=== PATIENT | female | born 1995 | race Caucasian/White ===

== ENCOUNTER 2021-05-21 18:53 | Emergency (ER) | payer OTHER, SELFPAY ==
--- NOTE | ~2021-05-21 | XR_ITS ---
EXAMINATION: XR chest 1V portable DATE: 05/21/2021 19:30 INDICATION: Cough. TECHNIQUE: A single frontal view of the chest was obtained. COMPARISON: None. FINDINGS: The chest demonstrates clear lungs without pneumonia, pleural effusion, or pneumothorax. Th e heart size is normal. IMPRESSION: 1. No acute cardiopulmonary disease. Reviewed, dictated and finalized at location E. [facility]
[2021-05-21 19:10] VITALS: BP 140/87; PULSE 92; RESP 18; TEMP 37; O2SAT 98
--- NOTE | 2021-05-21 20:00 | ED.GENADULT ---
HPI - General Adult General Chief complaint: Shortness of Breath/Dyspnea Stated complaint: shortness of breath Time Seen by Provider: 05/21/21 19:16 History of Present Illness HPI narrative: Patient is a 18-year-old female who presents to the ER with cough and shortness of breath. Ongoing over the last week. Has sinus congestion and is worse at night which causes her to wake up and having to cough. Cough is productive. She does have some shortness of breath with exertion. No fevers or chills or sweats. She has been vaccinated against Covid. No loss of taste or smell. Related Data Allergies Allergy/AdvReac Type Severity Reaction Status Date / Time No Known Allergies Allergy Verified 05/21/21 19:21 Review of Systems Review of Systems: All systems reviewed & are unremarkable except as noted in HPI and below Constitutional: Constitutional: Denies chills, Reports fatigue and Denies fever(s) ENT: Reports nasal congestion and Reports sore throat Cardiovascular: Cardiovascular: Denies chest pain, Denies rapid heart rate and Denies radiating jaw, neck or arm pain Respiratory: Respiratory: Reports chest congestion, Reports cough, Reports dyspnea and Denies wheezing Gastrointestinal: Gastrointestinal: Denies abdominal pain, Denies nausea and Denies vomiting PMFSH Past Medical History Medical History (Updated 05/21/21 @ 20:[address] MD) Healthy female adult Surgical History Surgical History (Updated 05/21/21 @ 20:[address] MD) No history of previous surgery Social History Social History (Updated 05/21/21 @ 20:[address] MD) Smoking status: Current every day smoker Exam Narrative: GENERAL: Well-appearing, well-nourished, and in no acute distress. HEAD: Normocephalic, atraumatic. CHEST: Scattered rhonchi worse on left than right that improves with coughing. HEART: Regular rate and rhythm. Normal peripheral pulses.. EXTREMITIES: Normal range of motion. No edema. SKIN: Warm, dry, no rash. NEURO: Alert and oriented x3. PSYCH: Normal mood and affect. Course Course Emergency Course: Patient informed of results. Discharge home with steroids and albuterol. Patient may be experiencing bronchitis. Covid pending. Discussed should Covid results be positive its recommend she discontinue her prednisone. Vital Signs Vital signs: Vital Signs Temperature 98.6 F 05/21/21 19:10 Pulse Rate 92 05/21/21 19:10 Respiratory Rate 18 05/21/21 19:10 Blood Pressure 140/87 05/21/21 19:10 Pulse Oximetry 98 05/21/21 19:10 Temperature 98.6 F 05/21/21 19:10 Pulse Rate 92 05/21/21 19:10 Respiratory Rate 18 05/21/21 19:10 Blood Pressure 140/87 05/21/21 19:10 Pulse Oximetry 98 05/21/21 19:10 Medical Decision Making Vital Signs Vital Signs: Vital Signs Temperature 98.6 F 05/21/21 19:10 Pulse Rate 92 05/21/21 19:10 Respiratory Rate 18 05/21/21 19:10 Blood Pressure 140/87 05/21/21 19:10 Pulse Oximetry 98 05/21/21 19:10 Temperature 98.6 F 05/21/21 19:10 Pulse Rate 92 05/21/21 19:10 Respiratory Rate 18 05/21/21 19:10 Blood Pressure 140/87 05/21/21 19:10 Pulse Oximetry 98 05/21/21 19:10 Imaging Data Radiologist's impression: ITS Impressions Chest X-Ray 05/21/21 19:30 IMPRESSION: 1. No acute cardiopulmonary disease. Discharge Plan Discharge Clinical Impression: Bronchitis, Person under investigation for COVID-19 Patient Disposition: Home, Self-Care Condition: Stable Instructions: Acute Bronchitis (ED), COVID-19 (Coronavirus Disease 2019) (ED) Additional Instructions: Return the ER if you have worsening shortness of breath, you cannot keep down food or water, you develop chest pain, you have additional concerns. Prescriptions: New prednisone 50 mg tablet 50 mg PO DAILY Qty: 7 RF: 0 albuterol sulfate 90 mcg/actuation HFA aerosol inhaler 4 puff INHALATION QID MA
[2021-05-21 20:40] VITALS: BP 136/83; PULSE 81; RESP 20; O2SAT 100
== END 2021-05-21 20:41 | disposition home or self-care (01) ==
LOC: ANHED 20:14
PROVIDERS: Emergency Provider Emergency Medicine
DX: J40 Bronchitis, not specified as acute or chronic (principal); Z20.822 Contact with and (suspected) exposure to COVID-19
CPT/HCPCS: 71045; 99283

== ENCOUNTER 2024-06-03 13:39 | Emergency (ER) | payer OTHER, SELFPAY ==
--- NOTE | ~2024-06-03 | XR_ITS ---
CHEST RADIOGRAPH, PA AND LATERAL CLINICAL HISTORY: fever, cough . COMPARISON: 05/21/2021 TECHNIQUE: PA and lateral views of the chest. FINDINGS The cardiomediastinal silhouette is unremarkable. The lungs are clear. Visualized osseous structures and soft tissues are unremarkable. IMPRESSION: No focal infiltrate or effusion. Reviewed, dictated and finalized at location A. CIAN
--- OUTSIDE RECORDS SUMMARY | 2024-06-03 13:42 | XMS_ITS | Patient Health Summary ---
Author Organization [facility] Address [address] [place] [address] Care Team Providers Care Buttonhole Marker Name Role Phone Unavailable Primary Care Provider Unavailabl e Note from [facility],non-owned Affiliates and Associated Physician Practices is amultiple site organization consisting of ambulatory clinics and hospital sitesin [place], [place], [place] and [place]. This disclosure is being madepursuant to the Care Everywhere program and may not contain all information available regarding this patient. Last updated 17.[facility] Allergies No known active allergies Medications * Be aware that medications may not be up to date on this document. Alwaysverify current medications with the patient. * docusate sodium (Colace) 100 MG capsule Take 100 mg by mouth once daily * Vit-Fe Fumarate-FA ( vitamin) 28-0.8 MG tablet Take 1 tablet by mouth once daily * aspirin (Aspirin) 81 MG chew tablet Take 81 mg by mouth once daily * famotidine (Pepcid) 20 MG tablet(Started 01/20/2022) Take 1 (one) tablet by mouth every 12 hours Reasons: Heartburn 5 refills by 01/20/2023 Active Problems Problem Noted Date Diagnosed Date Class 3 obesity 01/19/2022 Preeclampsia, third trimester 01/19/2022 Social History Tobacco Use Types Packs/Day Years Used Date Smoking Tobacco: Never Smokeless Tobacco: Never Alcohol Use Standard Drinks/Week Comments Not Currently 0 (1 standard drink = 0.6 oz pur e alcohol) Sex and Gender Information Value Date Recorded Sex Assigned at Not on file Gender Identity Not on file Sexual Orientation Not on file Last Filed Vital Signs Vital Sign Reading Time Taken Comments Blood Pressure 128/76 02/12/2022 1:44 PM CDT Pulse 103 02/12/2022 1:44 PM CDT Temperature - - Respiratory Rate 14 01/20/2022 1:17 PM CDT Oxygen Saturation 99% 01/20/2022 1:17 PM CDT Inhaled Oxygen Concentration - - Weight 117.7 kg (259 lb 6 oz) 02/03/2022 1:32 PM CDT Height 162.6 cm (5' 4 ) 11/18/2021 3:09 PM CDT Body Mass Index 44.52 11/18/2021 3:09 PM CDT Procedures * BIOPHYSICAL PROFILE W NST(Performed 02/09/2022) Performed for Benign essential hypertension, antepartum (HCC), History of pre- eclampsia in prior , currently (HCC), BMI 40.0-44.9, adult (HCC), 32 weeks gestation of (HCC) * BIOPHYSICAL PROFILE W NST(Performed 02/03/2022) Performed for Benign essential hypertension, antepartum (HCC), History of pre- eclampsia in prior , currently (HCC), BMI 40.0-44.9, adult (HCC), 32 weeks gestation of (HCC) * BIOPHYSICAL PROFILE W NST(Performed 01/26/2022) Performed for Benign essential hypertension, antepartum (HCC), History of pre- eclampsia in prior , currently (HCC) * BIOPHYSICAL PROFILE W NST(Performed 01/20/2022) Performed for Benign essential hypertension, antepartum (HCC), History of pre- eclampsia in prior , currently (HCC), BMI 40.0-44.9, adult (HCC) * CBC W AUTO DIFFERENTIAL(Performed 01/13/2022) * COMPREHENSIVE METABOLIC PANEL(Performed 01/13/2022) * BIOPHYSICAL PROFILE W NST(Performed 01/13/2022) Performed for Benign essential hypertension, antepartum (HCC), History of pre- eclampsia in prior , currently (HCC), BMI 40.0-44.9, adult (HCC), 32 weeks gestation of (HCC) * SONOGRAM - COMPLETE(Performed 12/16/2021) Performed for History of pre-eclampsia in prior , currently (HCC) * SONOGRAM - COMPLETE(Performed 11/18/2021) Performed for Encounter for anatomic survey (HCC), BMI 40.0-44.9, adult (HCC), History of pre-eclampsia in prior , currently (HCC), 24 weeks gestation of (HCC) * SONOGRAM - COMPLETE(Performed 10/19/2021) Performed for Encounter for anatomic survey ([facility]), 20 weeks gestation of (HCC), Class 2 obesity due to excess calories without serious comorbidity with body mass index (BMI) of 37.0 to 37.9 in adult, History of pre- eclampsia in prior , currently (HCC) * SONOGRAM - TRANSVAGINAL(Performed 08/03/2021) Performed for Encounter to establish gestational age using ultrasound ([facility]), 9 weeks gestation of (HCC), Class 3 severe obesity due to excess calories in adult, unspecified BMI, unspecifiedwhether serious comorbidity present (HCC), History of pre-eclampsia in prior , currently ([facility]) Results * BIOPHYSICAL PROFILE W NST (02/09/2022 10:33 AM CDT) Only the most recent of5 resultswithin the time period is included. Anatomical Region Laterality Modality Other 02/09/2022 10:3 3 AM CDT Narrative 02/09/2022 11:20 AM CDT [facility] PHONE: FAX: Pat. Name: ABENA HOLT Shanice. No: [id number] Study Date: 02/09/2022 10:33am , Age: 02 1995, 26 Pregnancies: 2, Para 1 Height: 64 in Weight: 220 lb LMP: 05/30/2021 GA by LMP: 36w3d GA by Base: 36w3d CARLOS: 03/06/2022 GA by US: 37w2d CARLOS: 02/28/2022 GA Selected: 36w3d (LMP) CARLOS: 03/06/2022 Referring MD: Dot Cabral MD Panel Fitter: Beronica Umanzor [facility] CPT4: 44414,54001 BMI: 37.76 Hist/Ind: Hypertension Class II obesity History of preeclampsia MEASUREMENTS & AGE GROWTH EVALUATION Measurement GA Range Srce %for GA Ratios ----- ---- ------- BPD 9.4 cm 38w2d (66y5y-90v5c) Hadl BPD 95% FL/BPD 0.72 (0.71 - 0.87) HC 33.8 cm 38w6d (22d7w-40l4s) Hadl HC 79% FL/AC 0.20 (0.20 - 0.24) AC 33.4 cm 37w2d (63b6d-52q6g) Hadl AC 84% HC/AC 1.01 (0.92 - 1.11) FL 6.8 cm 34w6d (26e8x-87h3t) Hadl FL 12% CI 0.79 (0.70 - 0.86) HL 6.3 cm 36w4d (79b2z-64i4w) Chauncey HL 54% GA for sonogram 37w2d (81r9i-51e7w) Weight Estimate: based on (BPD,HC,AC,FL) Avg Weight: 3096 gm (2644-3548gm) Had : 6lbs, 13oz Normal: 2899 gm (2174-3624gm) Had Wt% 70% for 36w3d Heart Rate: 132 bpm Amniotic Fluid Index: 13.4cm (07.6-24.7) Q1: 4.5cm Q2: 3.8cm Q3: 2.6cm Q4: 2.5cm Biophysical Profile: 01/18 Breathin Tone: 2 NST: 2 Movement: 2 AFV: 2 EVAL, PLACENTA Presentation: cephalic Placenta: posterior Heart Rate: 132 bpm Amniotic Fluid Volume: normal CLINICAL SUMMARY The FHR baseline was 130 bpm during today's reactive NST. The FHR variability was moderate. IMPRESSION: Single, live, intrauterine at 36w3d in cephalic presentation Amniotic fluid volume: within normal limits Biophysical profile: Normal (01/18) size is within normal limits RECOMMEND: Continue twice weekly testing pending delivery Thank you for allowing us the opportunity to care for your patient Zaheer Valladares MD <Electronic Signature> 02/09/2022 11:20am Ernesto Villarreal MD [facility] ORDERABLES * (ABNORMAL) CBC W AUTO DIFFERENTIAL (01/13/2022 1:01 PM CDT) White Blood Cell Count 11.5(H) 3.8 - 10.8 Thousand/ uL [facility] RBC 3.99 3.80 - 5.10 Million/u L [facility] Hemoglobin 12.1 11.7 - 15.5 g/dL [facility] Hematocrit 35.8 35.0 - 45.0 % [facility] MCV 89.7 80.0 - 100.0 fL [facility] MCH 30.3 27.0 - 33.0 pg [facility] MCHC 33.8 32.0 - 36.0 g/dL [facility] RDW 12.3 11.0 - 15.0 % [facility] Platelet Count 244 140 - 400 Thousand/ uL [facility] MPV 11.3 7.5 - 12.5 fL [facility] Neutrophil Absolute 8246(H) 1500 - 7800 cells/uL [facility] Lymphocytes Absolute 2392 850 - 3900 cells/uL [facility] Absolute Monocytes 713 200 - 950 cells/uL [facility] Eosinophils Absolute 115 15 - 500 cells/uL [facility] Basophils Absolute 35 0 - 200 cells/uL [facility] Granulocytes % 71.7 % [facility] Lymphocytes % 20.8 % [facility] Monocytes % 6.2 % [facility] Eosinophils % 1.0 % [facility] Basophils % 0.3 % [facility] Comment: REPORT COMMENT: STAT Test Performed at: [email or web address] [id number] ROME FRANK MD 01/13/2022 1:01 PM CDT 01/13/2022 1:02 PM CDT Jessy Phillip TYPE INSPECTOR-MANAGER [facility] ORDERABLES [address] [address] * (ABNORMAL) COMPREHENSIVE METABOLIC PANEL (01/13/2022 1:01 PM CDT) Glucose 78 65 - 99 mg/dL [facility] Comment: Fasting reference interval BUN 7 7 - 25 mg/dL [facility] Creatinine 0.52 0.50 - 0.96 mg/dL [facility] eGFR by Cystatin C 130 > OR = 60 mL/min/1 .73m2 [facility] Comment: The eGFR is based on the CKD-EPI 2020 equation. To calculate the new eGFR from a previous Creatinine or Cystatin C result, go to https://www.kidney.org/professionals/ kdoqi/gfr%5Fcalculator BUN/Creatinine Ratio NOT APPLICABLE 6 - 22 (calc) [facility] Sodium 133(L) 135 - 146 mmol/L [facility] Potassium 3.9 3.5 - 5.3 mmol/L [facility] Chloride 101 98 - 110 mmol/L [facility] CO2 23 20 - 32 mmol/L [facility] Calcium 9.2 8.6 - 10.2 mg/dL [facility] Protein Total 6.7 6.1 - 8.1 g/dL [facility] Albumin 3.6 3.6 - 5.1 g/dL [facility] Globulin Total 3.1 1.9 - 3.7 g/dL (calc) [facility] Albumin/Globulin Ratio 1.2 1.0 - 2.5 (calc) [facility] Bilirubin Total 0.3 0.2 - 1.2 mg/dL [facility] Alkaline Phosphatase 120 31 - 125 U/L [facility] AST 13 10 - 30 U/L [facility] ALT 10 6 - 29 U/L [facility] Comment: Test Performed at: [email or web address] [address] ROME FRANK MD 01/13/2022 1:01 PM CDT 01/13/2022 1:02 PM CDT Jessy Fisher TYPE INSPECTOR-MANAGER [facility] CHEMISTRY ORDERABLES [address] [address] * SONOGRAM - COMPLETE (12/16/2021 2:14 PM CDT) Only the most recent of3 resultswithin the time period is included. Anatomical Region Laterality Modality Other 12/16/2021 2:1 4 PM CDT Narrative 12/16/2021 3:10 PM CDT [facility] PHONE: FAX: Pat. Name: ABENA HOLT Pat. No: [id number] Study Date: 12/16/2021 2:14pm , Age: 02 1995, 26 Pregnancies: 2, Para 1 Height: 64 in Weight: 241 lb LMP: 05/30/2021 GA by LMP: 28w4d GA by Base: 28w4d CARLOS: 03/06/2022 GA by US: 30w1d CARLOS: 02/23/2022 GA Selected: 28w4d (LMP) CARLOS: 03/06/2022 Referring MD: Dot Cabral MD Panel Fitter: Beronica Umanzor RDMS CPT4: 95252 BMI: 41.36 Hist/Ind: Complete Anatomy Screen Reassess Kidneys Class II Obesity Hx Pre-E MEASUREMENTS & AGE GROWTH EVALUATION Measurement GA Range Srce %for GA Ratios ----- ---- ------- BPD 7.7 cm 30w6d (96m0v-65w7c) Hadl BPD 94% FL/BPD 0.71 (0.71 - 0.87) HC 27.8 cm 30w3d (97b5p-79z4i) Hadl HC 71% FL/AC 0.21 (0.20 - 0.24) AC 26.0 cm 30w1d (24v0l-59a7t) Hadl AC 85% HC/AC 1.07 (0.99 - 1.18) FL 5.5 cm 29w0d (65n6f-95z0a) Hadl FL 44% CI 0.79 (0.70 - 0.86) HL 5.4 cm 31w1d (47j6c-22z6g) Chauncey HL 92% GA for sonogram 30w1d (76o2x-83d8y) Weight Estimate: based on (BPD,HC,AC,FL) Avg Weight: 1464 gm (1250-1678gm) Had : 3lbs, 3oz Normal: 1312 gm (984-1640gm) Hadl Wt% 82% for 28w4d Heart Rate: 149 bpm Amniotic Fluid Index: 17.5cm (09.3-23.0) Q1: 4.0cm Q2: 3.6cm Q3: 4.4cm Q4: 5.5cm EVAL, PLACENTA Presentation: cephalic Placenta: posterior Heart Rate: 149 bpm Anatomy!Normal!Abnormal!Suboptimal!Prev. Seen!Comments Cranium ! x ! ! ! x ! Mdl (CSP/Thal! ! ! ! x ! Ventricles ! ! ! ! x ! Choroid Plexu! ! ! ! x ! Cerebellum ! ! ! ! x ! Cisterna M. ! ! ! ! x ! Nuchal Fold ! ! ! ! x ! Orbits ! ! ! ! x ! Profile ! ! ! ! x ! Nasal Bone ! ! ! ! x ! Lip ! ! ! ! x ! Spine ! ! ! ! x ! Lungs ! ! ! ! x ! 4 Chamber Hea! ! ! ! x ! LVOT ! ! ! ! x ! RVOT ! ! ! ! x ! 3 Vessel View! ! ! ! x ! 3 Vessel Trac! ! ! ! x ! Cross-over ! ! ! ! x ! Ductal Arch ! ! ! ! x ! Aortic Arch ! x ! ! ! ! Caval View ! ! ! ! x ! Situs ! ! ! ! x ! Diaphragm ! ! ! ! x ! Stomach ! x ! ! ! x ! Bowel ! ! ! ! x ! Kidneys ! x ! ! ! x ! Bladder ! x ! ! ! x ! 3 Vessel Cord! ! ! ! x ! Cord In! ! ! ! x ! Upper Extremi! ! ! ! x ! Hands ! ! ! ! x ! Lower Extremi! ! ! ! x ! Feet ! ! ! ! x ! External Mindy! ! ! ! x ! Placental Cor! ! ! ! x ! CLINICAL SUMMARY Study Number: 4 A single fetus is seen in cephalic presentation. The measurements today are consistent with appropriate interval growth. The CARLOS is based on her LMP and a prior ultrasound examination. The amniotic fluid volume is within normal limits. IMPRESSION: Single, live, intrauterine at 28w4d size is within normal limits Amniotic fluid volume: within normal limits No major malformations were seen within the limitations of ultrasound. Patient had a consult with the SIGNAL INSPECTOR today RECOMMEND: Ultrasound in 4 weeks for growth assessment and to begin weekly BPP and NST Thank you for allowing us the opportunity to care for your patient. Willis Calles MD <Electronic Signature> 12/16/2021 03:10pm Anupama López MD [facility] ORDERABLES * SONOGRAM - TRANSVAGINAL (08/03/2021 10:48 AM CDT) Anatomical Region Laterality Modality Other 08/03/2021 10:4 8 AM CDT Narrative 08/03/2021 12:14 PM CDT [facility] PHONE: FAX: Pat. Name: ABENA HOLT Pat. No: [id number] Study Date: 08/03/2021 10:48am , Age: 02 1995, 26 Pregnancies: 2, Para 1 Height: 64 in Weight: 220 lb LMP: 05/30/2021 GA by LMP: 09w2d GA by US: 09w4d CARLOS: 03/04/2022 GA Selected: 09w4d (Sonographic) CARLOS: 03/04/2022 Referring MD: Kwesi Ivan MD Panel Fitter: Brittney Zepeda RDMS, RDCS CPT4: 14736 BMI: 37.76 Hist/Ind: Confirm dates Obesity Hx Pre-E MEASUREMENTS & AGE GROWTH EVALUATION Measurement GA Range Srce %for GA Ratios ----- ---- ------- CRL 2.7 cm 09w4d (55f0v-65q4h) Hadl CRL 50% GA for sonogram 09w4d (89m6b-62f0w) based on (CRL) Avg Heart Rate: 171 bpm EVAL, PLACENTA Location: intrauterine Gestational Sac: normal Yolk Sac: visualized Heart Rate: 171 bpm Anatomy!Seen!Not Seen!Comments Myometrium ! x ! ! Right Ovary ! x ! ! Left Ovary ! x ! ! Cul de sac ! x ! ! CLINICAL SUMMARY Study Number: 1 IMPRESSION: Single, live, intrauterine at 09w4d The CARLOS selected is based on LMP and today's ultrasound There is normal heart motion The right ovary appears normal. The left ovary appears normal. There is no free fluid in the pelvis. RECOMMEND: Ultrasound @ 20 weeks for anatomy and cervical length screening Thank you for allow us the opportunity to care for your patient. Zaheer Valladares MD <Electronic Signature> 08/03/2021 12:14pm Ordering Provider Unlisted MD FREDERICK CLINTON
--- OUTSIDE RECORDS SUMMARY | 2024-06-03 13:42 | XMS_ITS | Clinical Summary ---
Author Organization [facility] Address [address] [place] [address] Care Team Providers Care Water And Sewer Systems Superintendent Name Role Phone Unavailable Primary Care Provider Unavailabl e Source Comments [facility],non-owned Affiliates and Associated Physician Practices is amultiple site organization consisting of ambulatory clinics and hospital sitesin [place], [place], [place] and [place]. This disclosure is being madepursuant to the Care Everywhere program and may not contain all information available regarding this patient. Last updated 17.[facility] [employer] Allergies No known active allergies Medications * Be aware that medications may not be up to date on this document. Alwaysverify current medications with the patient. Medication Sig Dispensed Refills Start Date End Date Status docusate sodium (Colace) 100 MG capsule Take 100 mg by mouth once daily Active Vit-Fe Fumarate-FA ( vitamin) 28-0.8 MG tablet Take 1 tablet by mouth once daily Active aspirin (Aspirin) 81 MG chew tablet Take 81 mg by mouth once daily Active famotidine (Pepcid) 20 MG tabletIndications:He artburn Take 1 (one) tablet by mouth every 12 hours Reasons: Heartburn 60 tablet 5 01/20/2022 Active Active Problems Problem Noted Date Diagnosed Date Class 3 obesity 01/19/2022 Preeclampsia, third trimester 01/19/2022 Family History Medical History Relation Name Comments Hypertension Mother Relation Name Status Comments Father Mother Alive Social History Tobacco Use Types Packs/Day Years [...] Mass Index 44.52 11/18/2021 3:09 PM CDT Plan of Treatment Health Maintenance Due Date Last Done Comments PAP SMEAR 1995 HIV SCREENING 2008 HEPATITIS C SCREENING 05/13/2011 DTAP/TDAP/TD VACCINES (1 - Tdap) 2012 HEPATITIS B VACCINE (1 of 3 - 19+ 3-dose series) 2012 COVID-19 VACCINE (3 - 2023-2 5 season) 2023 01/28/2021, 01/02/2021 INFLUENZA VACCINE (#1) 2023 DEPRESSION SCREENING 04/11/2024 ZOSTER VACCINE (1 of 2) 2043 HIB VACCINE Aged Out No longer eligi ble based on patient's age to complete this topic HPV VACCINE Aged Out No longer eligi ble based on patient's age to complete this topic MENINGOCOCCAL (Group B) VACCINE Aged Out No longer eligible b ased on patient's age to complete this topic MENINGOCOCCAL VACCINE Aged Out No shay juan carlos eligible based on patient's age to complete this topic PNEUMOCOCCAL VACCINE Aged Out No long er eligible based on patient's age to complete this topic
--- OUTSIDE RECORDS SUMMARY | 2024-06-03 13:42 | XMS_ITS | Clinical Summary ---
Author Organization [facility] Address [facility] [place] [address] Care Team Providers Care Men'S Golf Coach Name Role Phone None, Provider MD Primary Care Provider Unavaila ble Allergies No known active allergies Medications aspirin 81 MG chewable tablet Chew 81 mg by mouth daily. Active 28-0.8 MG tablet Take 1 tablet by mouth daily. Active docusate sodium (COLACE) 100 MG capsule Take 100 mg by mouth 2 (two) times daily. Active famotidine (PEPCID) 20 MG tablet Take 20 mg by mouth 2 (two) times daily. Active Active Problems Problem Noted Date Diagnosed Date ([facility]) 02/13/2022 Pre-eclampsia ([facility]) 02/03/2022 Other headache syndrome 01/31/2022 Social History Tobacco Use Types Packs/Day Years Used Date Smoking Tobacco: Former Smokeless Tobacco: Never Alcohol Use Standard Drinks/Week Comments Not Currently 0 (1 standard drink = 0.6 oz pur e alcohol) Humiliation, Afraid, Rape, and Kick questionnair e Answer Date Recorded Within the last year, have y ou been afraid of your partner or ex-partner? No 02/03/2022 Within the last year, have y ou been humiliated or emotionally abused in other ways by your partner or ex-partner? No Within the last year, have y ou been kicked, hit, slapped, or otherwise physically hurt by your partner or ex-partner? No 02/03/2022 Within the last year, have y ou been raped or forced to have any kind of sexual activity by your partner or ex-partner? No 02/03/2022 Depression Answer Date Recor ded Last EPDS Total Score 0 02/16/2022 Last EPDS Self Harm Result Never 02/16 Comments No Sex and Gender Information Value Date Recorded Sex Assigned at Not on file Legal Sex Female 7:15 PM CDT Gender Identity Not on file Sexual Orientation Not on file Last Filed Vital Signs Vital Sign Reading Time Taken Comments Blood Pressure 134/82 02/17/2022 7:30 AM MATH PROFESSOR notified Genevieve FRANK Pulse 73 02/17/2022 7:30 AM MATH PROFESSOR Temperature 36.7 C (98.1 F) 02/17/2022 7:30 AM MATH PROFESSOR Respiratory Rate 14 02/17/2022 9:42 AM MATH PROFESSOR Oxygen Saturation 100% 02/17/2022 7:3 0 AM MATH PROFESSOR Inhaled Oxygen Concentration - - Weight 117.9 kg (260 lb) 02/03/2022 9:0 0 PM CDT Height 162.6 cm (5' 4 ) 02/03/2022 9:00 PM CDT Body Mass Index 44.63 02/03/2022 9:00 PM CDT Plan of Treatment Health Maintenance Due Date Last Done Comments Cervical Cancer Screening Pap Smear (Age 30 to 64) Every 3 Years 1993 Annual Physical 1996 Cervical Cancer Screening Pap with HPV Testing (Age 30 to 64) Every 5 Years 2023 Cervical Cancer Screening with HPV 2023 COVID-19 Vaccine (2023- season) 2023 01/28/2021, 01/02/2021 Influenza Adult (#1) 2024 DTaP, Tdap and Td Vaccines (3 - Td or Tdap) 12/18/2031 12/17/2021, 11/16/1994, 1993, Additional history exists Hepatitis B Vaccines Completed 08/31/1994, 05/18/1994, 03/30/1994 HPV Vaccines Completed 10/18/2016, 09/09, 07/16/2015 Hepatitis C Completed 07/20/2021 Meningococcal B Vaccine Aged Out No l onger eligible based on patient's age to complete this topic Meningococcal Vaccine Aged Out No shay juan carlos eligible based on patient's age to complete this topic Pneumococcal Vaccine: Pediatrics (0 to 5 Years) and At-Risk Patients (6 to 64 Years) Aged Out No longer eligible based on patient's age to complete this topic RSV Immunizations Under 20 Months Aged Out No longer eligible based on patient's age to complete this topic Procedures Procedure Name Priority Date/Time Associated Diagnosis Comments HEPATITIS C ANTIBODY Routine 07/20/2021 from Last 3 Months or Most Recently Relevant to Health Maintenance Results * HEPATITIS C ANTIBODY (07/20/2021) HEPATITIS C AB Negative us Default History Genericprovider LABORATORY Final Result from Last 3 Months or Most Recently Relevant to Health Maintenance [place] [address] [place] [address] Advance Directives * Full Code (Latest Code Status on File) Date Activated Date Inactivated Comments 02/13/2022 5:13 AM 02/16/2022 12:09 AM Care Teams Men'S Golf Coach Relationship Specialty Start Date End Date None, Provider, PCP - General UNKNOWN PHYSICIAN SPECIALTY 01/31/22
--- OUTSIDE RECORDS SUMMARY | 2024-06-03 13:42 | XMS_ITS | Encounter Summary ---
Author Organization [facility] Address [facility] [place] [address] Care Team Providers Care Cross Enterprise Integrator Name Role Phone None, Provider Primary Care Provider Emory minaya Encounter Details Date Type Department Care Team (Late st Contact Info) Description 02/23/2022 Hospital Follow-up Call [facility] [place] [address] Alia Mcclure RN Social History Tobacco Use Types Packs/Day Years [...] on file Sexual Orientation Not on file COVID-19 Exposure Response Date Recorded In the last 10 days, have yo u been in contact with someone who was confirmed or suspected to have Coronavirus/COVID-19? 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 Answer Date of Assessment Author Status No 02/13/2022 5:36 AM CDT Activ e * Do you have serious difficulty walking or climbing stairs? Answer Date of Assessment Author Status No 02/13/2022 5:36 AM SHILOHT Liyah Phelan RN Active * Do you have difficulty dressing or bathing? Answer Date of Assessment Author Status No 02/13/2022 5:36 AM Liyah Mao RN Active * Because of a physical, mental, or emotional condition, do you have difficulty doing errands alone such as visiting a doctor's office or shopping? Answer Date of Assessment Author Status No 02/13/2022 5:36 AM Liyah Mao RN Active documented as of this encounter Mental Status * Because of a physical, mental, or emotional condition, do you have serious difficulty concentrating, remembering, or making decisions? Answer Entry Date Author Status No 02/13/2022 5:36 AM Liyah Mao RN Active documented in this encounter Plan of Treatment Not on file documented as of this encounter Visit Diagnoses Not on filedocumented in this encounter Care Teams Cross Enterprise Integrator Relationship Specialty Start Date End Date None, Provider, PCP - General UNKNOWN PHYSICIAN SPECIALTY 01/31/22 documented as of this encounter
--- OUTSIDE RECORDS SUMMARY | 2024-06-03 13:42 | XMS_ITS | Referral Summary ---
Author Organization [facility] Address [address] [place] [address] Care Team Providers Care Senior Database Administrator Name Role Phone Unavailable Primary Care Provider Unavailabl e Source Comments [facility],non-owned Affiliates and Associated Physician Practices is amultiple site organization consisting of ambulatory clinics and hospital sitesin [place], [place], [place] and [place]. This disclosure is being madepursuant to the Care Everywhere program and may not contain all information available regarding this patient. Last updated 17.[facility] [employer] Allergies No known active allergies Medications * [...] 11/18/2021 3:09 PM CDT Plan of Treatment Not on file
--- OUTSIDE RECORDS SUMMARY | 2024-06-03 13:42 | XMS_ITS | Data Portability ---
Author Organization [facility] Address [address] [place] [address] Care Team Providers Care Electrician Supervisor Name Role Phone DOT DOTSON Radial Saw Operator EVELYN OQUENDO Primary Care Provider Unaagnes iljessica Assessment No assessment recorded. Plan of Treatment Reminders Order Date Submit Date Provider Last Modified By Organization Details Last Modified Time Details Appointments None recorded. Lab CMP, serum or plasma 2023 024 [place] [facility], [address], [place], [address], 4 06:18:15 CBC 2023 024 [place] [facility], [address], [place], [address], 4 06:18:16 TSH, ultra-sens itive, serum 2023 024 [place] [facility], [address], [address], [place], [address], 4 13:11:46 test, urine 2021 022 [email or web address] In-Office Order, Internal Use Only DO Not Attach Compendium DO Not Attach Compendium, Do Not Delete/merge, [id number] 2 12:17:47 Referral counseling referral 2022 023 [email or web address] [facility] (), [address] [place] [address] [place], [address], 3 12:05:02 Procedures None recorded. Surgeries None recorded. Imaging XR, sacrum + coccyx 2023 024 [facility] ([facility]), [address] [place], [address], 4 16:31:12 US, duplex, venous, lower extremity - STAT [address] [facility], [address] [place], [address], 2 11:18:38 Medication Orders sertraline 50 mg tablet 2023 024 [id number], [address], [place], [place], [id number], 4 15:23:38 sertraline 50 mg tablet 2022 023 [email or web address] i1 [facility] #33811, [address], [place], [place], [id number], 3 18:02:51 Nexplanon 68 mg subdermal implant 2021 022 [email or web address] i1 [facility] #[id number], [address], [place], [place], [id number], 2 12:04:46 Patient TargetsNo targets recorded. Patient Instructions Encounter Date Encounter Id Patient Instructions Last Modified By Organization Details Last Modified Time 02/22/2022 [id number] I was present and available in the family medicine clinic to discuss the patient's care during the appointment and the case was discussed with me. I agree with the resident's assessment and plan as documented. 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 METAB OLIC PANEL (14) glucose 69 mg/dL 70-99 below low normal Ple ase note refer ence inter verena marino e Not Available [facility] ([facility]) [address] [place], [address], 01/26/2022 12:10:14 01/23/20 22 01/23/2022 COMP. METAB OLIC PANEL (14) BUN 5 mg/dL 6-20 below low normal Not Available [facility] ([facility]) [address] [place], [address], 01/26/2022 12:10:14 01/23/20 22 01/23/2022 COMP. METAB OLIC PANEL (14) creatinine 0.61 mg/dL 0.57-1 .00 Not Available [facility] ([facility]) [address] [place], [address], 01/26/2022 12:10:14 01/23/20 22 01/23/2022 COMP. METAB OLIC PANEL (14) eGFR 125 mL/mi n/1.7 3 >59 Not Available [facility] ([facility]) [address] [place], [address], 01/26/2022 12:10:14 01/23/20 22 01/23/2022 COMP. METAB OLIC PANEL (14) BUN/creatini ne ratio 8 9-23 below low normal Not Available [facility] ([facility]) [address] [facility], [place], [address], 01/26/2022 12:10:14 01/23/20 22 01/23/2022 COMP. METAB OLIC PANEL (14) sodium 138 mmol/ L 134-14 4 Not Available [facility] ([facility]) [address] [facility], [place], [address], 01/26/2022 12:10:14 01/23/20 22 01/23/2022 COMP. METAB OLIC PANEL (14) potassium 4.0 mmol/ L 3.5-5. 2 Not Available [facility] ([facility]) [address] [place], [address], 01/26/2022 12:10:14 01/23/20 22 01/23/2022 COMP. METAB OLIC PANEL (14) chloride 101 mmol/ L 96-106 Not Available [facility] ([facility]) [address] [place], [address], 01/26/2022 12:10:14 01/23/20 22 01/23/2022 COMP. METAB OLIC PANEL (14) carbon dioxide, total 17 mmol/ L 20-29 below low normal Not Available [facility] ([facility]) [address] [place], [address], 01/26/2022 12:10:14 01/23/20 22 01/23/2022 COMP. METAB OLIC PANEL (14) calcium 8.9 mg/dL 8.7-10 .2 Not Available [facility] ([facility]) [address] [place], [address], 01/26/2022 12:10:14 01/23/20 22 01/23/2022 COMP. METAB OLIC PANEL (14) protein, total 6.3 g/dL 6.0-8. 5 Not Available [facility] ([facility]) [address] [facility], [place], [address], 01/26/2022 12:10:14 01/23/20 22 01/23/2022 COMP. METAB OLIC PANEL (14) albumin 3.8 g/dL 3.9-5. 0 below low normal Not Available [facility] ([facility]) [address] [facility], [place], [address], 01/26/2022 12:10:14 01/23/20 22 01/23/2022 COMP. METAB OLIC PANEL (14) globulin, total 2.5 g/dL 1.5-4. 5 Not Available [facility] ([facility]) [address] [facility], [place], [address], 01/26/2022 12:10:14 01/23/20 22 01/23/2022 COMP. METAB OLIC PANEL (14) A/G ratio 1.5 1.2-2. 2 Not Available [facility] ([facility]) [address] [facility], [place], [address], 01/26/2022 12:10:14 01/23/20 22 01/23/2022 COMP. METAB OLIC PANEL (14) bilirubin, total <0.2 mg/dL 0.0-1. 2 Not Available [facility] ([facility]) [address] [facility], [place], [address], 01/26/2022 12:10:14 01/23/20 22 01/23/2022 COMP. METAB OLIC PANEL (14) alkaline phosphatase 133 IU/L 44-121 above high normal Not Available [facility] ([facility]) [address] [facility], [place], [address], 01/26/2022 12:10:14 01/23/20 22 01/23/2022 COMP. METAB OLIC PANEL (14) AST (SGOT) 12 IU/L 0-40 Not Available [facility] ([facility]) [address] [facility] [place], [address], 01/26/2022 12:10:14 01/23/20 22 01/23/2022 COMP. METAB OLIC PANEL (14) ALT (SGPT) 9 IU/L 0-32 Not Available [facility] ([facility]) [address] [facility] [place], [address], 01/26/2022 12:10:14 01/23/20 22 01/23/2022 CBC, NO DIFFE RENTI AL/PL ATELE T WBC 12.6 x10e3 /uL 3.4-10 .8 above high normal Not Available [facility] ([facility]) [address] [facility], [place], [address], 01/26/2022 12:10:15 01/23/20 22 01/23/2022 CBC, NO DIFFE RENTI AL/PL ATELE T RBC 3.79 x10e6 /uL 3.77-5 .28 Not Available [facility] ([facility]) [address] [facility] [place], [address], 01/26/2022 12:10:15 01/23/20 22 01/23/2022 CBC, NO DIFFE RENTI AL/PL ATELE T hemoglobin 11.5 g/dL 11.1-1 5.9 Not Available [facility] ([facility]) [address] [place], [address], 01/26/2022 12:10:15 01/23/20 22 01/23/2022 CBC, NO DIFFE RENTI AL/PL ATELE T hematocrit 33.9 % 34.0-4 6.6 below low normal Not Available [facility] ([facility]) [address] [place], [address], 01/26/2022 12:10:15 01/23/20 22 01/23/2022 CBC, NO DIFFE RENTI AL/PL ATELE T MCV 89 fL 79-97 Not Available [facility] ([facility]) [address] [place], [address], 01/26/2022 12:10:15 01/23/20 22 01/23/2022 CBC, NO DIFFE RENTI AL/PL ATELE T MCH 30.3 pg 26.6-3 3.0 Not Available [facility] ([facility]) [address] [facility], [place], [address], 01/26/2022 12:10:15 01/23/2001/23/2022 CBC, NO DIFFE RENTI AL/PL ATELE T MCHC 33.9 g/dL 31.5-3 5.7 Not Available [facility] ([facility]) [address] [place], [address], 01/26/2022 12:10:15 01/23/20 22 01/23/2022 CBC, NO DIFFE RENTI AL/PL ATELE T RDW 12.3 % 11.7-1 5.4 Not Available [facility] ([facility]) [address] [place], [address], 01/26/2022 12:10:15 01/23/20 22 01/22/2022 UNABL E TO VOID unable to void Commen t Patie nt unabl e to void. Urine to be colle cted at a later date. Not Available [facility] ([facility]) [address] [place], [address], 01/26/2022 12:10:15 01/23/2001/26/2022 STREP GP B CULTU RE strep gp B culture Positi ve negati ve abnormal Cente rs for Disea se Contr ol and Preve ntion (CDC) and Ameri can Congr ess of Obste trici ans and Gynec ologi sts (ACOG ) guide lines for preve ntion of perin atal group B strep tococ nuzhat (GBS) disea se speci fy co-co llect ion of a vagin al and recta l swab speci men to maxim ize sensi tivit y of GBS detec tion. Per the CDC and ACOG, swabb ing both the lower vagin a and rectu m subst antia lly incre ases the yield of detec tion barby red with sampl ing the vagin a alone . Penic illin G, ampic illin , or cefaz walter are indic ated for intra partu m proph ylaxi s of perin atal GBS colon izati on. Refle x susce ptibi lity testi ng shoul d be perfo rmed prior to use of clind amyci n only on GBS isola kassidy from penic illin -darrion rgic women who are consi dered a high risk for anaph ylaxi s. Treat ment with vanco mycin witho ut addit ional testi ng is warra nted if resis tance to clind amyci n is noted . Not Available [facility] ([facility]) [address] [place], [address], 01/26/2022 12:10:14 01/30/2001/30/2022 COMP. METAB OLIC PANEL (14) glucose 70 mg/dL 70-99 Not Available [facility] ([facility]) [address] [place], [address], 01/30/2022 05:09:37 01/30/20 22 01/30/2022 COMP. METAB OLIC PANEL (14) BUN 5 mg/dL 6-20 below low normal Not Available [facility] ([facility]) [address] [place], [address], 01/30/2022 05:09:37 01/30/20 22 01/30/2022 COMP. METAB OLIC PANEL (14) creatinine 0.44 mg/dL 0.57-1 .00 below low normal Not Available [facility] ([facility]) [address] [place], [address], 01/30/2022 05:09:37 01/30/20 22 01/30/2022 COMP. METAB OLIC PANEL (14) eGFR 135 mL/mi n/1.7 3 >59 Not Available [facility] ([facility]) [address] [facility], [place], [address], 01/30/2022 05:09:37 01/30/20 22 01/30/2022 COMP. METAB OLIC PANEL (14) BUN/creatini ne ratio 11 9-23 Not Available [facility] ([facility]) [address] [facility], [place], [address], 01/30/2022 05:09:37 01/30/2001/30/2022 COMP. METAB OLIC PANEL (14) sodium 135 mmol/ L 134-14 4 Not Available [facility] ([facility]) [address] [facility], [place], [address], 01/30/2022 05:09:37 01/30/20 22 01/30/2022 COMP. METAB OLIC PANEL (14) potassium 3.8 mmol/ L 3.5-5. 2 Not Available [facility] ([facility]) [address] [facility], [place], [address], 01/30/2022 05:09:37 01/30/20 22 01/30/2022 COMP. METAB OLIC PANEL (14) chloride 100 mmol/ L 96-106 Not Available [facility] ([facility]) [address] [place], [address], 01/30/2022 05:09:37 01/30/20 22 01/30/2022 COMP. METAB OLIC PANEL (14) carbon dioxide, total 20 mmol/ L 20-29 Not Available [facility] ([facility]) [address] [place], [address], 01/30/2022 05:09:37 01/30/20 22 01/30/2022 COMP. METAB OLIC PANEL (14) calcium 8.9 mg/dL 8.7-10 .2 Not Available [facility] ([facility]) [address] [facility] [place], [address], 01/30/2022 05:09:37 01/30/20 22 01/30/2022 COMP. METAB OLIC PANEL (14) protein, total 5.9 g/dL 6.0-8. 5 below low normal Not Available [facility] ([facility]) [address] [facility] [place], [address], 01/30/2022 05:09:37 01/30/2001/30/2022 COMP. METAB OLIC PANEL (14) albumin 3.5 g/dL 3.9-5. 0 below low normal Not Available [facility] ([facility]) [address] [facility] [place], [address], 01/30/2022 05:09:37 01/30/2001/30/2022 COMP. METAB OLIC PANEL (14) globulin, total 2.4 g/dL 1.5-4. 5 Not Available [facility] ([facility]) [address] [facility] [place], [address], 01/30/2022 05:09:37 01/30/20 22 01/30/2022 COMP. METAB OLIC PANEL (14) A/G ratio 1.5 1.2-2. 2 Not Available [facility] ([facility]) [address] [facility] [place], [address], 01/30/2022 05:09:37 01/30/20 22 01/30/2022 COMP. METAB OLIC PANEL (14) bilirubin, total <0.2 mg/dL 0.0-1. 2 Not Available [facility] ([facility]) [address] [facility] [place], [address], 01/30/2022 05:09:37 01/30/20 22 01/30/2022 COMP. METAB OLIC PANEL (14) alkaline phosphatase 129 IU/L 44-121 above high normal Not Available [facility] ([facility]) [address] [place], [address], 01/30/2022 05:09:37 01/30/20 22 01/30/2022 COMP. METAB OLIC PANEL (14) AST (SGOT) 13 IU/L 0-40 Not Available [facility] ([facility]) [address] [place], [address], 01/30/2022 05:09:37 01/30/20 22 01/30/2022 COMP. METAB OLIC PANEL (14) ALT (SGPT) 8 IU/L 0-32 Not Available [facility] ([facility]) [address] [place], [address], 01/30/2022 05:09:37 01/30/2001/30/2022 CBC WITH DIFFE RENTI AL/PL ATELE T WBC 11.4 x10e3 /uL 3.4-10 .8 above high normal Not Available [facility] ([facility]) [address] [place], [address], 01/30/2022 05:09:37 01/30/20 22 01/30/2022 CBC WITH DIFFE RENTI AL/PL ATELE T RBC 3.83 x10e6 /uL 3.77-5 .28 Not Available [facility] ([facility]) [address] [place], [address], 01/30/2022 05:09:37 01/30/20 22 01/30/2022 CBC WITH DIFFE RENTI AL/PL ATELE T hemoglobin 11.3 g/dL 11.1-1 5.9 Not Available [facility] ([facility]) [address] [place], [address], 01/30/2022 05:09:37 01/30/20 22 01/30/2022 CBC WITH DIFFE RENTI AL/PL ATELE T hematocrit 33.8 % 34.0-4 6.6 below low normal Not Available [facility] ([facility]) [address] [place], [address], 01/30/2022 05:09:37 01/30/20 22 01/30/2022 CBC WITH DIFFE RENTI AL/PL ATELE T MCV 88 fL 79-97 Not Available [facility] ([facility]) [address] [facility], [place], [address], 01/30/2022 05:09:37 01/30/20 22 01/30/2022 CBC WITH DIFFE RENTI AL/PL ATELE T MCH 29.5 pg 26.6-3 3.0 Not Available [facility] ([facility]) [address] [facility], [place], [address], 01/30/2022 05:09:37 01/30/2001/30/2022 CBC WITH DIFFE RENTI AL/PL ATELE T MCHC 33.4 g/dL 31.5-3 5.7 Not Available [facility] ([facility]) [address] [place], [address], 01/30/2022 05:09:37 01/30/20 22 01/30/2022 CBC WITH DIFFE RENTI AL/PL ATELE T RDW 12.5 % 11.7-1 5.4 Not Available [facility] ([facility]) [address] [place], [address], 01/30/2022 05:09:37 01/30/20 22 01/30/2022 CBC WITH DIFFE RENTI AL/PL ATELE T platelets 239 x10e3 /uL 150-45 0 Not Available [facility] ([facility]) [address] [place], [address], 01/30/2022 05:09:37 01/30/20 22 01/30/2022 CBC WITH DIFFE RENTI AL/PL ATELE T neutrophils 69 % notest ab. Not Available [facility] ([facility]) [address] [facility], [place], [address], 01/30/2022 05:09:37 01/30/20 22 01/30/2022 CBC WITH DIFFE RENTI AL/PL ATELE T lymphs 22 % notest ab. Not Available [facility] ([facility]) [address] [facility], [place], [address], 01/30/2022 05:09:37 01/30/2001/30/2022 CBC WITH DIFFE RENTI AL/PL ATELE T monocytes 6 % notest ab. Not Available [facility] ([facility]) [address] [facility], [place], [address], 01/30/2022 05:09:37 01/30/20 22 01/30/2022 CBC WITH DIFFE RENTI AL/PL ATELE T eos 2 % notest ab. Not Available [facility] ([facility]) [address] [facility], [place], [address], 01/30/2022 05:09:37 01/30/2001/30/2022 CBC WITH DIFFE RENTI AL/PL ATELE T basos 0 % notest ab. Not Available [facility] ([facility]) [address] [facility], [place], [address], 01/30/2022 05:09:37 01/30/20 22 01/30/2022 CBC WITH DIFFE RENTI AL/PL ATELE T neutrophils (absolute) 7.9 x10e3 /uL 1.4-7. 0 above high normal Not Available [facility] ([facility]) [address] [facility], [place], [address], 01/30/2022 05:09:37 01/30/20 22 01/30/2022 CBC WITH DIFFE RENTI AL/PL ATELE T lymphs (absolute) 2.5 x10e3 /uL 0.7-3. 1 Not Available [facility] ([facility]) [address] [facility], [place], [address], 01/30/2022 05:09:37 01/30/2001/30/2022 CBC WITH DIFFE RENTI AL/PL ATELE T monocytes(ab solute) 0.7 x10e3 /uL 0.1-0. 9 Not Available [facility] ([facility]) [address] [facility], [place], [address], 01/30/2022 05:09:37 01/30/20 22 01/30/2022 CBC WITH DIFFE RENTI AL/PL ATELE T eos (absolute) 0.2 x10e3 /uL 0.0-0. 4 Not Available [facility] ([facility]) [address] [facility], [place], [address], 01/30/2022 05:09:37 01/30/20 22 01/30/2022 CBC WITH DIFFE RENTI AL/PL ATELE T baso (absolute) 0.0 x10e3 /uL 0.0-0. 2 Not Available [facility] ([facility]) [address] [facility], [place], [address], 01/30/2022 05:09:37 01/30/20 22 01/30/2022 CBC WITH DIFFE RENTI AL/PL ATELE T immature granulocytes 1 % notest ab. Not Available [facility] ([facility]) [address] [facility], [place], [address], 01/30/2022 05:09:37 01/30/20 22 01/30/2022 CBC WITH DIFFE RENTI AL/PL ATELE T immature grans (abs) 0.1 x10e3 /uL 0.0-0. 1 Not Available [facility] ([facility]) [address] [facility], [place], [address], 01/30/2022 05:09:37 02/16/20 22 02/15/2022 CARLI SURGI NUZHAT PATHO LOGY carli surgical pathology [facility] [address] [place] [place] [address] Phone : [phone] Fax: Depar tment of Patho logy Patho logy Repor t SURGI NUZHAT FINAL REPOR T Patiestuardo nt Name: LIZZY DC Acctyra misty# : [id number] : [phone] (Age: 26) Locat ion: [facility] IF Gende r: F Colle cted Date: 2021 Med Rec #: [id number] Date Recei elroy: 2021 Date Repor steven: 2021 Provi rafael: EFRA COE MD Speci men(s ) Place nta Final Patho logic Diagn osis PLACE NTA AND UMBIL ICAL CORD, VAGIN AL DELIV SAMSON: [address] NTA (NORM AL WEIGH T FOR GESTA DUSTY L AGE) THREE -VESS EL UMBIL ICAL CORD WITH NO HISTO PATHO LOGIC ABNOR MALIT Y MEMBR ANES WITH NO HISTO PATHO LOGIC ABNOR MALIT Y MATUR E VILLO US MORPH OLOGY Elizabeth ctron icall y Mary d Out CHELO JENSEN MD Patho logis t SMO:s ml1 Micro scopi c Descr iptio n: The micro scopi c exami natio n subst antia kassidy the above diagn osis. Clini nuzhat Histo ry Preec lamps ia, 37w2d ega Gross Descr iptio n Recei elroy is a singl e forma eran-f illed conta iner label ed with the patie nt's name (Juanita hodge) , date of ( 6/199 4) (form joesph time 02/15 at 2340) and addit ional ly label ed plac enta. The speci men consi sts of a singl eton place nta, measu ring 19.5 x 21.0 x 3.5 cm with an eccen trica lly inser steven umbil ical cord, measu ring 29.0 cm in lengt h with a diame ter up to 3.0 cm. The cord is edema tous. Secti oning of the cord at the aspec t of the large st diame ter revea ls a false knot. There are no ident ifiab le true knots . Secti oning of the remai nerissa cord revea ls three -vess els. The membr anes are purpl e-jose semit ransl ucent and have del nal inser tion. The surfa ce is purpl e-jose with arik l vascu latur e. The mater nal surfa ce is red-t an with intac t cotyl edons . The angel ed disc weigh s 441 grams . Secti oning of the disc revea ls a red-t an homog enous cut surfa ce. Repre senta tive secti ons are submi tted as follo ws: 1 - Membr ane roll and repre senta tive cross secti on cord 2 - Repre senta tive full thick ness cross secti ons cord to inclu de repre senta tive false knot 3-5 - Repre senta tive full thick ness place ntal disc :sml1 [place] ng Fee Code( s): 38222 Not Available [facility] (Lab) [facility], [place], [address], 02/17/2022 16:39:42 03/31/20 22 03/31/2022 pregn dai test, urine HCG negati ve Not Available In-Office Order Internal Use Only DO Not Attach Compendium DO Not Attach Compendium, Do Not Delete/merge, [id number] 03/31/2022 11:04:44 03/31/20 22 03/31/2022 edinb urgh postn atal depre ssion scale * Score 0 Not Available In-Office Order Internal Use Only DO Not Attach Compendium DO Not Attach Compendium, Do Not Delete/merge, [id number] 03/31/2022 11:04:32 07/06/19 24 07/06/2023 COMP. METAB OLIC PANEL (14) glucose 90 mg/dL 70-99 Not Available [facility] [address] [place], [address], 07/07/2023 06:18:15 07/06/19 24 07/06/2023 COMP. METAB OLIC PANEL (14) BUN 10 mg/dL 6-20 Not Available [facility] [address] [place] [address], [address], 07/07/2023 06:18:15 07/06/19 24 07/06/2023 COMP. METAB OLIC PANEL (14) creatinine 0.76 mg/dL 0.76-1 .27 Not Available [facility] [address] [place] [address], [address], 07/07/2023 06:18:15 07/06/19 24 07/06/2023 COMP. METAB OLIC PANEL (14) eGFR 108 >=60 Units for eGFR value s are mL/mi n/1.7 3 The eGFR Calcu latio n has not been valid ated for patie nts under the age of 18. If test resul ts are displ ayed for a patie nt under the age of 18, disre edna that value . Not Available [facility] [address] [place] [address], [address], 07/07/2023 06:18:15 07/06/19 24 07/06/2023 COMP. METAB OLIC PANEL (14) BUN/creatini ne ratio 13 9-23 Not Available [facility] [address] [place], [address], 07/07/2023 06:18:15 07/06/19 24 07/06/2023 COMP. METAB OLIC PANEL (14) sodium 141 mmol/ L 134-14 4 Not Available [facility] [address] [place], [address], 07/07/2023 06:18:15 07/06/19 24 07/06/2023 COMP. METAB OLIC PANEL (14) potassium 4.8 mmol/ L 3.5-5. 2 Not Available [facility] [address] [place], [address], 07/07/2023 06:18:15 07/06/19 24 07/06/2023 COMP. METAB OLIC PANEL (14) chloride 105 mmol/ L 96-106 Not Available [facility] [address] [place], [address], 07/07/2023 06:18:15 07/06/19 24 07/06/2023 COMP. METAB OLIC PANEL (14) carbon dioxide, total 17 mmol/ L 20-29 below low normal Not Available [facility] [address] [place], [address], 07/07/2023 06:18:15 07/06/19 24 07/06/2023 COMP. METAB OLIC PANEL (14) calcium 9.5 mg/dL 8.7-10 .2 Not Available [facility] [address] [place], [address], 07/07/2023 06:18:15 07/06/19 24 07/06/2023 COMP. METAB OLIC PANEL (14) protein, total 7.4 g/dL 6.0-8. 5 Not Available [facility] [address] [place], [address], 07/07/2023 06:18:15 07/06/19 24 07/06/2023 COMP. METAB OLIC PANEL (14) albumin 4.3 g/dL 4.0-5. 0 Not Available [facility] [address] [place], [address], 07/07/2023 06:18:15 07/06/19 24 07/06/2023 COMP. METAB OLIC PANEL (14) globulin, total 3.1 g/dL 1.5-4. 5 Not Available [facility] [address] [place], [address], 07/07/2023 06:18:15 07/06/19 24 07/06/2023 COMP. METAB OLIC PANEL (14) A/G ratio 1.4 1.2-2. 2 Not Available [facility] [address] [place], [address], 07/07/2023 06:18:15 07/06/19 24 07/06/2023 COMP. METAB OLIC PANEL (14) bilirubin, total 0.4 mg/dL 0.0-1. 2 Not Available [facility] [address] [place] [address], [id number], 07/07/2023 06:18:15 07/06/19 24 07/06/2023 COMP. METAB OLIC PANEL (14) alkaline phosphatase 115 IU/L 44-121 Not Available [facility] [address] [place] [address], [id number], 07/07/2023 06:18:15 07/06/19 24 07/06/2023 COMP. METAB OLIC PANEL (14) AST (SGOT) 21 IU/L 0-40 Not Available [facility] [address] [place] [address], [id number], 07/07/2023 06:18:15 07/06/19 24 07/06/2023 COMP. METAB OLIC PANEL (14) ALT (SGPT) 13 IU/L 0-32 Not Available [facility] [address] [place] [address], [id number], 07/07/2023 06:18:15 07/06/19 24 07/06/2023 CBC, PLATE LET, NO DIFFE RENTI AL WBC 10.2 x10e3 /uL 3.4-10 .8 Not Available [facility] [address] [place] [address], [address], 07/07/2023 06:18:16 07/06/19 24 07/06/2023 CBC, PLATE LET, NO DIFFE RENTI AL RBC 4.74 x10e6 /uL 3.77-5 .28 Not Available [facility] [address] [place], [address], 07/07/2023 06:18:16 07/06/19 24 07/06/2023 CBC, PLATE LET, NO DIFFE RENTI AL hemoglobin 13.8 g/dL 11.1-1 5.9 Not Available [facility] [address] [place], [address], 07/07/2023 06:18:16 07/06/19 24 07/06/2023 CBC, PLATE LET, NO DIFFE RENTI AL hematocrit 43.5 % 34.0-4 6.6 Not Available [facility] [address] [place], [address], 07/07/2023 06:18:16 07/06/19 24 07/06/2023 CBC, PLATE LET, NO DIFFE RENTI AL MCV 92 fL 79-97 Not Available [facility] [address] [place], [address], 07/07/2023 06:18:16 07/06/19 24 07/06/2023 CBC, PLATE LET, NO DIFFE RENTI AL MCH 29.1 pg 26.6-3 3.0 Not Available [facility] [address] [place], [address], 07/07/2023 06:18:16 07/06/19 24 07/06/2023 CBC, PLATE LET, NO DIFFE RENTI AL MCHC 31.7 g/dL 31.5-3 5.7 Not Available [facility] [address] [place], [address], 07/07/2023 06:18:16 07/06/19 24 07/06/2023 CBC, PLATE LET, NO DIFFE RENTI AL RDW 13.1 % 11.5-1 4.5 Not Available [facility] [address] [place], [address], 07/07/2023 06:18:16 07/06/19 24 07/06/2023 CBC, PLATE LET, NO DIFFE RENTI AL platelets 323 x10e3 /uL 150-45 0 Mean Plate let Volum e 11.2 fL 8.9-1 2.7 N Not Available [facility] [address] [place], [address], 07/07/2023 06:18:16 07/06/19 24 07/06/2023 CBC, PLATE LET, NO DIFFE RENTI AL NRBC 0 % 0-0 Not Available [facility] [address] [place], [address], 07/07/2023 06:18:16 07/06/19 24 07/07/2023 TSH RFX ON ABNOR MAL TO FREE T4 TSH 2.120 uIU/m L 0.450- 4.500 Not Available [facility] ([facility]) [address] [facility], [place], [address], 07/07/2023 13:11:46 01/27/20 22 01/26/2022 non-s tress test No observ ation record ed. [email or web address] [facility] [address] [place] [address], [address], 01/28/2022 14:01:07 02/04/20 22 02/03/2022 US, obste tric, mater nal evalu ation + anato my No observ ation record ed. [email or web address] [facility] [address] [place] [address], [address], 02/09/2022 17:24:26 02/10/20 22 02/09/2022 non-s tress test No observ ation record ed. [email or web address] [facility] [address] [place] [address], [address], 02/09/2022 17:05:35 11/02/20 22 02/09/2022 non-s tress test No observ ation record ed. [email or web address] [facility] [address] [place], [address], 02/11/2022 09:47:52 07/06/19 24 07/06/2023 XR, sacru m + coccy x No observ ation record ed. [facility] [address] [place], [address], 07/08/2023 13:06:18 12/27/19 24 12/27/2023 XR, cervi nuzhat spine , 4 or 5 view No observ ation record ed. [address] [place], [address], 01/12/2024 10:35:37 12/27/19 24 12/27/2023 XR, shoul rafael No observ ation record ed. [address] [place], [address], 01/12/2024 10:35:54 12/27/19 24 12/27/2023 XR, ribs, bilat eral No observ ation record ed. [address] [place], [address], 01/12/2024 10:36:14 12/27/19 24 12/27/2023 CT, abdom en + pelvi s, w/o contr ast No observ ation record ed. [address] [place], [address], 01/12/2024 10:36:32 12/27/19 24 12/27/2023 CT, angio gram, chest , w/ contr ast No observ ation record ed. [address] [place], [address], 01/12/2024 10:36:52 Result Notes None recorded. Problems Name Problem SNOMED Code Status Onset Date Resolution Date Notes Provider Name and Address Organization Details Recorded Time Pregnanc y 39593498 Completed 202102/22/2022 Ernesto Villarreal [place] - [facility] 2 10:10:58 Routine antenata l care Active 2021 Dominick [place] [facility] 2 14:20:32 Routine antenata l care Completed 2021 Domin[place] [facility] 2 14:19:57 Maternal obesity complica ting pregnanc y, childbir th and the [place] , [facility] 60179374710 7 Completed 2021 MFM referral and antenata l testing at 36w DEVORAH [place], [place] - [facility] 3 14:24:05 Maternal obesity complica ting pregnanc y, childbir th and the [place] , [facility] 67555928335 7 Active 2021 MFM referral and antenata l testing at 36w Virginia Hoffman [place] null, [place] - [facility] 3 14:24:05 Past pregnanc y history of pre-ecla mpsia 49481128578 9100 Active 2021 develope d at term and was induced. Will start 81mg ASA at 12 weeks. M rachelle ng. DEVORAH [place], [place] - [facility] 3 14:24:05 Past pregnanc y history of pre-ecla mpsia 25059938483 9100 Completed 2021 develope d at term and was induced. Will start 81mg ASA at 12 weeks. M comanagi ng. DEVORAH [place] - [facility] 3 14:24:05 Varicell a non-immu ne 186089484 Active 2021 needs vaccine PP DEVORAH [place] - [facility] 3 14:24:05 Varicell a non-immu ne 835632014 Completed 2021 needs vaccine PP Virginia Hoffman [place] [facility] 3 14:24:05 Constipa tion 97765964 Active 2021 starting miralax and colace Virginia [place] [facility] 3 14:24:05 Constipa tion 83320778 Completed 2021 starting miralax and colace Virginia [place] [facility] 3 14:24:05 Group B Streptoc occus carrier 25307751244 03 Completed 2021 Will need intrapar richard PCN Virginia [place] [facility] 3 14:24:05 Left lower quadrant pain 145245920 Active [place] null[place] [facility] 6 17:09:17 Problem Notes None recorded. Procedures Surgical History Date Name Laterality Status Provider Name and Address Organization Details Recorded Time 03/31/20 22 Control Implant Insertion completed ERIKA MOTNEMAYOR Attn: Accounting,[address] [place], [address], [place] [facility] 03/31/2022 11:31:32 07/21/19 22 Date of Last Pap Smear completed Ivana Dsouza [place] [facility] 07/20/2021 14:14:59 11/11/19 19 Depo Injection completed Bibi Melendez [place] [facility] 11/10/2018 18:03:54 08/22/19 19 Control Implant Removal completed [place] Ferro [place] [facility] 08/21/2018 18:25:31 08/11/19 16 Control Implant Replacement completed [place]ito Miranda [place] [facility] 08/11/2015 15:04:18 08/11/19 16 Control Implant Removal completed [place]ito Miranda [place] [facility] 08/11/2015 15:04:18 Imaging Results Imaging Date Name Status LastModified by Organiz ation Details LastModified Time 01/26/2022 non-stress test completed [email or web address] [address], [address], 01/28/2022 14:01:07 02/03/2022 US, obstetric, maternal evaluation + anatomy completed [email or web address] [facility] [address] [place] [address], [address], 02/09/2022 17:24:26 02/09/2022 non-stress test completed [email or web address] [facility] [address] [place] [address], [address], 02/09/2022 17:05:35 02/09/2022 non-stress test completed [email or web address] [facility] [address] [place] [address], [address], 02/11/2022 09:47:52 07/06/2023 XR, sacrum + coccyx completed [facility] [address] [place], [address], 07/08/2023 13:06:18 12/27/2023 XR, cervical spine, 4 or [address] [place], [address], 01/12/2024 10:35:37 12/27/2023 XR, shoulder completed [address] [place], [address], 01/12/2024 10:35:54 12/27/2023 XR, ribs, bilateral completed [address] [place], [address], 01/12/2024 10:36:14 12/27/2023 CT, abdomen + pelvis, w/o contrast completed [address] [place], [address], 01/12/2024 10:36:32 12/27/2023 CT, angiogram, chest, w/ contrast completed [address] [place], [address], 01/12/2024 10:36:52 Procedure Notes None recorded. Medical Equipment None Reported. Allergies No known drug allergies Medications Name Sig Start Date Stop Date Status Note LastModified by Organization Details LastModified Time Prescript ion - Prior Authoriza tion Request TAKE 1 TABLET BY MOUTH EVERY DAY 01/22 completed Not Available Not Available Not Available multivita min tablet Take 1 tablet every day by oral route. 07/20 completed Not Available Not Available Not Available amoxicill in 500 mg capsule 07/20 completed Not Available Not Available Not Available acetamino phen 325 mg tablet 03/31 completed Not Available Not Available Not Available nicotine 14 mg/24 hr daily transderm al patch 07/20 completed Not Available Not Available Not Available azithromy lyudmila 250 mg tablet 07/20 completed Not Available Not Available Not Available Lidocaine Viscous 2 % mucosal solution 07/20 completed Not Available Not Available Not Available fluconazo le 150 mg tablet Take 1 tablet by oral route for 1 day. 08/21 completed Not Available Not Available Not Available meloxicam 15 mg tablet 07/20 completed Not Available Not Available Not Available ondansetr on HCl 4 mg tablet 07/20 completed Not Available Not Available Not Available ceftriaxo ne 250 mg solution for injection Take 250 mg by injectio n route for 1 day. 08/21 completed Not Available Not Available Not Available aspirin 81 mg tablet,de layed release TAKE 1 TABLET BY MOUTH EVERY DAY 10/01 completed Not Available Not Available Not Available ketorolac 10 mg tablet 08/21 completed Not Available Not Available Not Available famotidin e 20 mg tablet TAKE 1 TABLET BY MOUTH EVERY 12 HOURS FOR HEARTBUR N 10/01 completed Not Available Not Available Not Available ciproflox acin 0.3 % eye drops INSTILL 1-2 DROPS IN AFFECTED EYE EVERY 2 HOURS WHILE AWAKE FOR 2 DAYS THEN EVERY 4 HOURS FOR 5 DAYS 10/01 completed Not Available Not Available Not Available Flagyl 500 mg tablet Take 1 tablet every 12 hours by oral route for 14 days. 08/21 completed Not Available Not Available Not Available ranitidin e 150 mg tablet 07/20 completed Not Available Not Available Not Available prednison e 50 mg tablet TAKE 1 TABLET BY MOUTH DAILY 07/20 completed Not Available Not Available Not Available docusate sodium 100 mg capsule TAKE 1 CAPSULE BY MOUTH EVERY DAY 10/01 completed Not Available Not Available Not Available ibuprofen 600 mg tablet 10/01 completed Not Available Not Available Not Available polyethyl roberto glycol 3350 17 gram/dose oral powder DISSOLVE 1 CAPFUL IN 4 TO 8 OZ OF LIQUID AND DRINK BY MOUTH DAILY 03/31 completed Not Available Not Available Not Available albuterol sulfate HFA 90 mcg/actua tion aerosol inhaler INHALE 4 PUFFS BY MOUTH FOUR TIMES DAILY NEEDED FOR SHORTNES S OF BREATH OR WHEEZING 07/20 completed Not Available Not Available Not Available Sterling 5 mg-325 mg tablet Take 2 tablets every 6 hours by oral route. 08/21 completed Not Available Not Available Not Available fluticaso ne propionat e 50 mcg/actua tion nasal spray,adriana pension SHAKE LIQUID AND USE 1 SPRAY IN EACH NOSTRIL EVERY DAY 10/01 completed Not Available Not Available Not Available sertralin e 50 mg tablet one tab po q d, if tolerati ng well can increase to two tabs po q d active Not Available Not Available No t Available medroxypr ogesteron e 150 mg/mL intramusc ular suspensio n Inject 1 mL every 3 months by intramus cular route. 07/20 completed Not Available Not Available Not Available doxycycli ne hyclate 100 mg tablet Take 1 tablet twice a day by oral route for 14 days. 08/21 completed Not Available Not Available Not Available naproxen 500 mg tablet 07/20 completed Not Available Not Available Not Available amoxicill in 875 mg-potass ium clavulana te 125 mg tablet 07/20 completed Not Available Not Available Not Available azithromy lyudmila 500 mg tablet Take 2 tablets every day by oral route for 1 day. 08/21 completed Not Available Not Available Not Available nitrofura ntoin monohydra te/macroc rystals 100 mg capsule TAKE 1 CAPSULE BY MOUTH TWICE DAILY WITH FULL GLASS OF WATER 07/20 completed Not Available Not Available Not Available Nexplanon 68 mg subdermal implant Inject 1 implant by subcutan eous route. 2021 active Not Available Not Available Not Avai lable 28 mg iron-800 mcg tablet TAKE 1 TABLET BY MOUTH EVERY DAY 10/01 completed This replaces script for Prenavit e. PLEASE d/c. Received notice that med was not covered. PCP approved the 28mg-800 mcg to be continue d. Not Available Not Available Not Available calcium 600 mg (as carbonate )-vitamin D3 20 mcg (800 unit) tablet Take 1 tablet twice a day by oral route for 30 days. 07/20 completed Not Available Not Available Not Available 28 mg-800 mcg tablet Take 1 tablet every day by oral route. 10/01 completed Not Available Not Available Not Available Se-Sandee- 19 29 mg iron-1 mg tablet TAKE 1 TABLET BY MOUTH EVERY DAY 07/03 completed Not Available Not Available Not Available Vitals Date Recorded Body height Body temperature Heart rate Oxygen saturation Oxygen saturation in Arterial blood by Pulse oximetry Systolic blood pressure Diastolic blood pressure Provider Name and Address Organization Details Last Updated DateTime 2 162.56 cm 98.6 [degF] 79 /min 98 % 98 % 124 mm[Hg] 89 mm[Hg] Faith Pedro CMA [facility] 2 09:50:19 Date Recorded Body weight Provider Name an d Address Organization Details Last Updated DateTime 02/22/2022 934028.80760 g Ernesto Villarreal [facility] 022 10:10:55 Date Recorded Body height Body mass index (BMI) Body weight Systolic blood pressure Diastolic blood pressure Provider Name and Address Organization Details Last Updated DateTime 03/31/2022 162.56 cm 44.3 kg/m2 351634.8 3 g 120 mm[Hg] 84 mm[Hg] Jade Vivas MA [facility] 2 11:17:01 Date Recorded Body height Body mass index (BMI) Body weight Systolic blood pressure Diastolic blood pressure Provider Name and Address Organization Details Last Updated DateTime 10/01/2022 162.56 cm 44.3 kg/m2 588723.8 3 g 118 mm[Hg] 88 mm[Hg] Virginai Hoffman [place] - [facility] 3 14:26:47 Date Recorded Body height Body mass index (BMI) Body weight Systolic blood pressure Diastolic blood pressure Provider Name and Address Organization Details Last Updated DateTime 11/05/2022 162.56 cm 43.4 kg/m2 743958.8 7 g 120 mm[Hg] 84 mm[Hg] Virginia Hoffman MA [facility] 3 16:23:16 Date Recorded Body height Body mass index (BMI) Body weight Oxygen saturation Oxygen saturation in Arterial blood by Pulse oximetry Heart rate Systolic blood pressure Diastolic blood pressure Provider Name and Address Organization Details Last Updated DateTime 162.56 cm 45.3 kg/m2 849916. 39 g 97 % 97 % 84 /min 118 mm[Hg] 78 mm[Hg] Malina Monroe MA [facility] 4 14:45:29 Social History Question Answer Notes LastModified by Organizat ion Details LastModified Time Tobacco Smoking Status Current Every Day Smoker Malina Monroe [place] null, [place] - [facility] 07/04/2023 14:43:35 Do You Have An Advance Directive? No Information not available 07/16/2015 What Is Your Level Of Alcohol Consumption? None Information not available 07/16/2015 Is Blood Transfusion Acceptable In An Emergency? Yes Information not available 07/16/2015 What Is Your Level Of Caffeine Consumption? Moderate Information not available 07/16/2015 How Much Tobacco Do You Chew? None Information not available 07/16/2015 Are You Currently Employed? Yes Information not available 07/16/2015 What Type Of Diet Are You Following? REGULAR Information not available 07/16/2015 Education 12 Information no t available 07/16/2015 What Is Your Occupation? [employer] [email or web address] Information not available 08/21/2018 Live Alone Or With Others? With Others Information not available 07/16/2015 What Was The Date Of Your Most Recent Tobacco Screening? 07/04/2023 Information not available 07/04/2023 How Many Children Do You Have? 1 Information not available 07/16/2015 What Is Your Current Pack Years? [email or web address] Information not available 08/17/2021 Performs Monthly Self-breast Exam? Yes Information no t available 07/16/2015 Do You Use Protection During Sex? No Information not available 07/16/2015 What Is Your Relationship Status? Single Information not available 07/16/2015 Seat Belts Used Routinely Yes Information not available 07/16/2015 Are You Sexually Active? No Information not available 07/16/2015 Do You Have Smoke And Carbon Monoxide Detectors In Your Home? Yes Information not available 08/17/2021 At What Age Did You Start Smoking Tobacco? 17 Information not available 07/16/2015 Are You Passively Exposed To Smoke? Yes Information no t available 08/17/2021 How Much Tobacco Do You Smoke? 0.25 PPD Information not available 07/16/2015 General Stress Level Medium [email or web address] Information not available 08/21/2018 Do You Use Any Illicit Or Recreational Drugs? No [email or web address] Information not available 01/22/2022 Do You Use Sunscreen Routinely? No Information not available 07/16/2015 Has Tobacco Cessation Counseling Been Provided? Yes [email or web address] Information not available 10/01/2022 On What Date Was Tobacco Cessation Counseling Provided? 07/04/2023 Information not available 07/04/2023 How Many Years Have You Smoked Tobacco? 7 [email or web address] Information not available 08/21/2018 Do You Or Have You Ever Used Any Other Forms Of Tobacco Or Nicotine? No Information not available 08/17/2021 Sex: Unknown Functional Status Question Answer Note LastModified by Organizat ion Details LastModified Time What is your exercise level? Occasional walk daily at work [email or web address] Information not available 08/21/2018 Mental Status None recorded. Family History Relationship Description Onset Age of this Age Resolved Age Notes LastModified by Organization Details LastModified Time Mother Hypertensive disorder Not available 10/26 16:38:37 Maternal Grandmother Hypertensive disorder [email or web address] Not available 10/26 16:38:37 Maternal Uncle Hypertensive disorder Not available 10/26 16:38:37 Medical History Condition Response Coronary Artery Disease N Kidney Cyst N Blood Diseases N Hyperthyroidism N Blood disorders N Blood Transfusion N MRSA N Emphysema N Depression N COPD N Blood Clots N Pneumonia N Premature N Peripheral Arterial Disease N Edema N TIA N Headaches/Migraines N Anxiety Disorder N Obesity N Polyps N Infertility N Acid Reflux (GERD) N Hematuria N Stroke N Neck Injury N Polio N Hospital Admission other than N Neurologic Disorder N Other Sleep Disorders N Rheumatoid Arthritis N Fibromyalgia N Abdominal Aortic Aneurysm Repair N Kidney Disease N Heart Conditions N Heart Disease/Heart Problems N Hospitalizations N Brain Tumors N Acne N Skin Problems N Eating Disorder N Meningitis N Constipation N Tuberculosis N Cerebral Palsy N Myocardial Infarction N Asthma N Substance Abuse N Peripheral Vascular Disease N Vertigo N Sleep Disorder N Cirrhosis N Pulmonary Embolism N Chicken Pox N Hematologic Disease N Flomax Use Past or Present N Anxiety/Depression N Thyroid Disease N Colon Cancer N Lung Disease N Glaucoma N Developmental or Behavioral Disorders N Bipolar N Pacemaker N Diverticulitis/Diverticulosis N Orthopedic Problems N Anesthesia Complications N Orthotics N Head Injury/Concussion N Congenital Anomalies N Lopez Bite N Chronic Kidney Disease N Endometriosis N Liver Disease N Schizophrenia N Dialysis N Speech Delay N Chronic Obstructive Pulmonary Disease N Parkinson's Disease N Thyroid Problems N GI Problems N Developmental Delay N Anemia N Multiple Sclerosis N Immune System Disorder N Colon Polyps N Heart Attack (IA) N Diabetes N Cardiomyopathy N Blood Transfusions N Heart Problems/Murmur N Eye Trauma N Congestive Heart Failure (CHF) N Valvular Heart Disease N Hyperlipidemia N Double Vision N Abuse/Domestic Violence N Hepatitis B N Lupus N Epilepsy/Seizures N Reflux/GERD N Aneurysm N Heart Disease N Bronchitis N Pre-Eclampsia N Hypertension N Heart Failure N Other N Gout N High Blood Pressure N Atrial Fibrillation N Kidney Stones N Head Trauma/Injury N Congenital Heart Disease N Spine Problems N Gastrointestinal Disease N Lung Mass N Sinusitis N Obstructive Sleep Apnea N Muscle, Joint, or Bone Problems N Autoimmune disease N Vision or Eye Problems N Arthritis N Blood Clot N Cancer N Seasonal allergies N Leg or Foot Ulcers N Raynaud's Disease N Aortic Aneurysm N Arrhythmia N Headaches N Heart Problems N Ambloypia N Ear or Hearing Problems N Hyperparathyroidism N Migraines N Artificial Joints N Kidney or Bladder Problems N NSAID Use N Encephalitis N PTSD N Ulcers N Prostate Hypertrophy N Bleeding Disorder N AIDS/HIV N Urinary Tract Infection N Back Problems N Allergies N Atrial Flutter N GERD/Reflux N Hepatitis N Autism Spectrum Disorder (ASD) N Breast Cancer N Hernia N Hypothyroidism N Breast Problem N Genitourinary Disease N Deep Vein Thrombosis N Varicose Veins N Cystic Fibrosis N Hearing Loss N Developmental Problems N Carotid Disease N Vitamin D Deficiency N ADHD N Bladder or Kidney Problems N High Cholesterol N [place] N Valvular Abnormalities N Psychiatric/Mental Health Condition N Organ Transplant N Foot Deformity N Allergies/Hayfever N Dyslipidemia N Hyponatremia N Diabetic Eye Disease N Osteoporosis/Osteopenia N Back Pain N Proteinuria N Mental Illness N Neurological Problems N Ovarian Cancer N Bedwetting N Seizures/Epilepsy N Kidney Failure N Ocular trauma N Diverticulitis N Dementia N Sleep Apnea N Mental Problems N Warfarin Management N Osteoporosis N Gynecological History Statement/Question Response Abnormal Pap N Date of LMP 07/04/2023 STIs/STDs Y HPV Vaccine Y Age at Menarche 12 Current Control Method Implant Age at First Child 15 Frequency of Cycle (Q days) Sexually Active? Y Menses Monthly N Date of Last Pap Smear 07/20/2021 Sexual Problems? N LMP Approximate Desired Control Method Implant Obstetrics History GPAL:G 2 P 2 0 0 2 Type Value Multiple Births 0 Full Term 2 Induced 0 Spontaneous 0 Premature 0 Living 2 Ectopics 0 Total 2 Immunizations Vaccine Type Date Status Note Provider Nam e and Address Organization Details Recorded Time HPV9 07/16/2015 completed Not Available [facility] 04/28/2019 02:49:46 HPV9 09/19/2015 completed Not Available [facility] 04/28/2019 02:51:04 HPV9 10/18/2016 completed Not Available [facility] 04/28/2019 02:39:18 Tdap 12/17/2021 completed Anupama López MD Attn: Accounting,[address] [place], [address], [facility] 12/20/2021 14:06:16 Past Encounters Encounter ID Performer Location Encounter Start Date Encounter Closed Date Diagnosis/Indication Diagnosis SNOMED-CT Code Diagnosis ICD10 Code Diagnosis Note [id number] Chito Shin (ADMINISTRATIVE MEDICAL DIRECTOR) [address] [place] [id number] 07/16/2015 14:24:22 07/16/2015 15:55:09 Gynecologic examination 64802638 Z01.419 Active or passive immunization 782594353 Z23 Subcutaneo us contraceptive implant present 320694093 Z97.8 Anxiety disorder 3580792 06 F41.9 [id number] Janet Maya Kip (ADMINISTRATIVE MEDICAL DIRECTOR) [address] [place] [id number] 08/11/2015 14:00:35 08/22/2015 15:52:25 Subcutaneous contraceptive implant present 506125345 Z97.8 removal of nexplanon without complicati on. Insertion of subcutaneous contraceptive 767442164 Z30.9 [id number] DEVORAH Camacho HC (ADMINISTRATIVE MEDICAL DIRECTOR) [address] [place] [id number] 09/19/2015 15:00:26 09/26/2015 13:41:02 Active or passive immunization 960837585 Z23 [id number] DEVORAH Mendenhall (ADMINISTRATIVE MEDICAL DIRECTOR) [address] [place] [id number] 0 10/27/2015 16:06:53 10/28/2015 13:43:26 Left lower quadrant pain 272407694 R10.32 Left sided tenderness on bimanual exam. [id number] MD Kip Atkins (ADMINISTRATIVE MEDICAL DIRECTOR) [address] [place] [id number] 0 10/18/2016 10:26:03 10/18/2016 17:02:01 Menorrhagia 328783241 N92.0 Counselled about it Pain in pelvis 67026727 R10.2 Venereal d isease screening 794431740 Z11.3 Obese 429098867 E66.9 Increased blood pressure 88739577 R03.0 Advised to f/u with PCP Female pel rashida inflammatory disease 413472126 N73.9 Safe sex counseling and use of condoms. Advised no intercours e until treatment. Notified patient that Partner need to be treated. Gynecologi c examination 07691224 Z01.411 Active or passive immunization 297312596 Z23 [id number] Caden Shin HC (ADMINISTRATIVE MEDICAL DIRECTOR) [address] [place] [address] [phone] 0 08/21/2018 16:37:48 08/23/2018 13:37:51 Family planning surveillance [id number] Z30.09 Removal of subcutaneous contraceptive done [id number] Z30.46 [id number] DEVORAH Camacho (ADMINISTRATIVE MEDICAL DIRECTOR) [address] [place] [address] [phone] 0 08/22/2018 09:26:15 08/23/2018 12:48:02 Family planning surveillance [id number] Z30.09 [id number] DEVORAH Camacho (ADMINISTRATIVE MEDICAL DIRECTOR) [address] [place] [address] [phone] 0 11/10/2018 16:24:00 11/13/2018 12:46:53 Family planning surveillance [id number] Z30.09 [id number] MONIKA Tubbs (ADMINISTRATIVE MEDICAL DIRECTOR) [address] [place] [address] [phone] 0 02/16/2019 16:52:39 02/19/2019 09:51:47 Family planning surveillance [id number] Z30.09 [id number] MD Kip LEMUS (ADMINISTRATIVE MEDICAL DIRECTOR) [address] [place] [address] [phone] 07/20/2021 13:50:33 07/20/2021 14:58:34 Routine care [id number] Z34.91 26 yo at 7.{{0 1 2* 3 4 5 6}} weeks, with ANTELMO of 03/06/{{* 2022}} based on {{LMP* LMP and c/w FTUS LMP and c/w STUS}}. complicate d by morbid obesity and history of pre-eclamp nicholas in last . Plan:1. CHANDU - will get FTM labs and US today2. Obesity - BMI 40.2 with ideal term weight 245-254lbs . Will need early A1c and 1hgtt3. Pre-E prevention - Will need to start 81 mg ASA at 12 weeks EGA Labs- IPN drawn today- Pap done (07/20/21)- C/G/trich {{positive negative treated pe nding#}}- HCV screen {{offered refused dr joshi* negat tra positi ve}}- depression screen negative- A1c drawn Vaccines- Flu {{complete d due* ref used not in season}}- Covid series {{complete d due* ref used}}- Tdap {{due at 28 weeks* com pleted ref used}} Imaging- 1st trimester US ordered Genetics- CF/sickle {{desired drawn* nor mal abnorm al refused }}- AFP/matern ity21 {{desired* drawn at 16 weeks refu sed normal abnormal} } - RTC {{4* 2 1}} weeks Screening for malignant neoplasm of cervix [id number] Z12.4 Maternal o besity complicating , childbirth and the puerperium, antepartum [id number] 07 O99.211 Maternal obesity - BMI over 40.- Sending to [facility]- Early 1hgtt at 16-20w, and repeat at 24-28w- growth scans at 32 and 36 weeks. BPPs per [facility], starting at 36 weeks [id number] ARCHIE PEARCE MD [facility] (ADMINISTRATIVE MEDICAL DIRECTOR) [address] [place] [address] 08/17/2021 11:30:36 08/18/2021 08:52:51 Past history of pre-eclampsia [id number] 40524 Z87.59 Past history of pre-eclamp nicholas that developed at term and was inducted in her last - will start 81mg ASA at 12 weeks Routine an [facility] care [id number] Z34.91 complicate d by morbid obesity and history of pre-eclamp nicholas in last . Plan:1. CHANDU - will get FTM genetic screens2. Obesity - BMI 40.2 with ideal term weight 245-254lbs . Will need early 1hgtt3. Pre-E prevention - Will need to start 81 mg ASA at 12 weeks EGA4. UDS positive for THC - repeat in 3TM5. Varicella non-immune - need PP booster Labs- IPN show Apos/RI/VN I/HIV NR/RPR NR- Pap WNL (07/20/21)- C/G/trich {{positive negative* treated}} - HCV screen {{offered refused dr joshi negati ve* positi ve}}- depression screen negative, EPDS 11/07 in FTM. Will repeat in 3TM.- A1c 5.1% Vaccines- Flu {{complete d due refu sed not in season*}}- Covid series {{complete d due refu sed*}}- Tdap {{due at 28 weeks* com pleted ref used}} Imaging- 1st trimester US @9+2w, SIUP, FHR 171, CRL 2.7cm, ANTELMO 03/06/22 Genetics- sickle {{desired drawn norm al* abnorm al refused }}- CF/AFP/mat [id number] {{desired* drawn at 16 weeks refu sed normal abnormal} } - RTC {{4 2 1 5# }} weeks Varicella non-immune 371 [id number] Z78.9 Will need vaccine PP Constipation [id number] K5 9.00 Pt reports feeling constipate d, and took colace only one day and had difficult BM this morning. Prior to this it had been 3 days since her last BM.- start miralax and colace daily until daily softer stools Maternal o besity complicating , childbirth and the puerperium, antepartum [id number] 07 O99.211 Maternal obesity - BMI over 40.- Sending to [facility]- Early 1hgtt at 16-20w, and repeat at 24-28w- growth scans at 32 and 36 weeks. BPPs per [facility], starting at 36 weeks [id number] ARCHIE PEARCE MD [facility] (ADMINISTRATIVE MEDICAL DIRECTOR) [address] [place] [address] [phone] 09/21/2021 11:30:35 09/21/2021 19:43:39 Routine care [id number] Z34.91 complicate d by morbid obesity and history of pre-eclamp nicholas in last . Plan:1. CHANDU - early 1hgtt today, will need repeated at 24w2. Obesity - BMI 40.2 with ideal term weight 245-254lbs . Will need early 1hgtt3. Pre-E prevention - Will need to start 81 mg ASA at 12 weeks EGA4. UDS positive for THC - repeat in 3TM5. Varicella non-immune - need PP booster Labs- IPN show Apos/RI/VN I/HIV NR/RPR NR- Pap WNL (07/20/21)- C/G/trich {{positive negative* treated}} - HCV screen {{offered refused dr joshi negati ve* positi ve}}- depression screen negative, EPDS 11/07 in FTM. Will repeat in 3TM.- A1c 5.1% Vaccines- Flu {{complete d due refu sed not in season*}}- Covid series {{complete d due refu sed*}}- Tdap {{due at 28 weeks* com pleted ref used}} Imaging- 1st trimester US @9+2w, SIUP, FHR 171, CRL 2.7cm, ANTELMO 03/06/22- has appt for growth scan in 4 weeks Genetics- CF/sickle {{desired drawn norm al* abnorm al refused }}- CF/AFP/mat {{desired drawn at 16 weeks refu sed normal * abnormal }} and suggests male To Do:- getting early 1hgtt today; will need repeated at 24w- refill of PNV- f/u US anatomy scan in 4 weeks - RTC {{4* 2 1}} weeks Past pregn dai history of pre-eclampsia [id number] 37068 Z87.59 Past history of pre-eclamp nicholas that developed at term and was inducted in her last - cont daily 81mg ASA Varicella non-immune 371 [id number] Z78.9 Will need vaccine PP Maternal o besity complicating , childbirth and the puerperium, antepartum [id number] 07 O99.211 Maternal obesity - BMI over 40.- referral placed to [facility]- Early 1hgtt at 16-20w, and repeat at 24-28w- growth scans at 32 and 36 weeks. BPPs per [facility], starting at 36 weeks [id number] Anupama López MD [facility] [address] [facility] [address] [place] [address] 10/22/2021 11:26:53 10/23/2021 14:34:53 Routine care [id number] Z34.91 26 yo G{{1 2* 3 4 5 6 7 8 9}}P{{1* 2 3 4 5 6 7 8 9}} female at {{1 2 3 4 5 6 7 8 9 10 11 12 1 3 14 15 16 17 18 19 20* 21 22 23 24 25 2 6 27 28 30 31 32 33 34 35 36 3 7 38 39 40 41}}weeks {{0 1 2 3 4 5* 6}} days EGA based on {{1st trimester US 2nd trimester US 3rd trimester US LMP LMP and confirmed by FTUS#}} is complicate d by morbid obesity and history of pre-eclamp nicholas in last , on ASA. ANTELMO: {{1 2 3 4 5 6 7 8 9 10 11* 12} }/{{1 2 3 4 5 6 7 8 9 10 11 12 13 14 15 16 17 18 1 9 20 21 22 23 24 25 26* 27 28 30 31}}/{{ 2020 2021* 2022}} complicate d by morbid obesity and history of pre-eclamp nicholas in last . Plan:1. CHANDU - early 1hgtt negative, will need repeated at 24w2. Obesity - BMI 40.2 with ideal term weight 245-254lbs .3. Pre-E prevention - Will need to start 81 mg ASA at 12 weeks EGA4. UDS positive for THC - repeat in 3TM5. Varicella non-immune - need PP booster Labs- IPN show Apos/RI/VN I/HIV NR/RPR NR- Pap WNL (07/20/21)- C/G/trich {{positive negative* treated}} - HCV screen {{offered refused dr joshi negati ve* positi ve}}- depression screen negative, EPDS 11/07 in FTM. Will repeat in 3TM.- A1c 5.1% Vaccines- Flu {{complete d due refu sed not in season*}}- Covid series {{complete d due refu sed*}}- Tdap {{due at 28 weeks* com pleted ref used}} Imaging- 1st trimester US @9+2w, SIUP, FHR 171, CRL 2.7cm, ANTELMO 03/06/22- 2nd trimester US @20w2d, SIUP, FHR 162, ANTELMO 03/06/22 Genetics- CF/sickle {{desired drawn norm al* abnorm al refused }}- CF/AFP/mat [id number] {{desired drawn at 16 weeks refu sed normal * abnormal }} and suggests male Baby Boy: [place] To Do:- Early 1 hr GTT negative; will need repeated at 24w- f/u US anatomy scan in 4 weeks - RTC {{4* 2 1}} weeks-Gene tic testing options reviewed-I mmunizatio ns reviewed-D iscussed plan for anatomy scan/revie wed results if completed- Aspirin initiation /continuat ion discussed if indicated- Healthy diet reviewed-A bstinence from tobacco, alcohol, and drugs reviewed Past pregn dai history of pre-eclampsia [id number] 92169 Z87.59 Past history of pre-eclamp nicholas that developed at term and was inducted in her last - cont daily 81mg ASA Maternal o besity complicating , childbirth and the puerperium, antepartum [id number] 07 O99.211 Maternal obesity - BMI over 40.- referral placed to MF and nutrition- Early 1hgtt negative, and repeat at 24-28w- growth scans at 32 and 36 weeks. BPPs per [facility], starting at 36 weeks Varicella non-immune 371 [id number] Z78.9 Will need vaccine PP [id number] Anupama López MD [facility] [address] [phone] 11/18/2021 12:18:37 11/19/2021 11:47:19 Routine care [id number] Z34.91 26 yo G{{1 2* 3 4 5 6 7 8 9}}P{{1* 2 3 4 5 6 7 8 9}} female at {{1 2 3 4 5 6 7 8 9 10 11 12 1 3 14 15 16 17 18 19 20* 21 22 23 24 25 2 6 27 28 30 31 32 33 34 35 36 3 7 38 39 40 41}}weeks {{0 1 2 3 4 5* 6}} days EGAbased on {{1st trimester US 2nd trimester US 3rd trimester US LMP LMP and confirmed by FTUS#}} is complicate d by morbid obesity and history of pre-eclamp nicholas in last , on ASA. ANTELMO: {{1 2 3 4 5 6 7 8 9 10 11* 12} }/{{1 2 3 4 5 6 7 8 9 10 11 12 13 14 15 16 17 18 1 9 20 21 22 23 24 25 26* 27 28 30 31}}/{{ 2020 2021* 2022}} complicate d by morbid obesity and history of pre-eclamp nicholas in last . Plan:1. CHANDU - early 1hgtt negative, will need repeated at 24-28w2. Obesity - BMI 42.8 with ideal term weight 245-254lbs .3. Pre-E prevention - Will need to start 81 mg ASA at 12 weeks EGA4. UDS positive for THC - repeat in 3TM5. Varicella non-immune - need PP booster6. Hx of chlamydia infection- Retest in 3rd trimester7 . Elevated BP- on 11/18/21 visit, will obtain baseline pre-eclamp nicholas labs8. Fundal Height 28 cm at 24 weeks- likely due to body habitus, continue to monitor Labs- IPN show Apos/RI/VN I/HIV NR/RPR NR- Pap WNL (07/20/21)- C/G/trich {{positive negative* treated}} - HCV screen {{offered refused dr joshi negofelia ve* positi ve}}- depression screen negative, EPDS 11/07 in FTM. Will repeat in 3TM.- A1c 5.1% Vaccines- Flu {{complete d due refu sed not in season*}}- Covid series {{complete d due refu sed*}}- Tdap {{due at 28 weeks* com pleted ref used}} Imaging- 1st trimester US @9+2w, SIUP, FHR 171, CRL 2.7cm, ANTELMO 03/06/22- 2nd trimester US anatomy survey @20w2d, SIUP, FHR 162, ANTELMO 03/06/22. EFW 55%. Normal anatomy. Genetics- CF/sickle {{desired drawn norm al* abnorm al refused }}- CF/AFP/mat [id number] {{desired drawn at 16 weeks refu sed normal * abnormal }} and suggests male Baby Boy: [place] To Do: - RTC {{4 2* 1}} weeks-Gene tic testing options reviewed-I mmunizatio ns reviewed-D iscussed plan for anatomy scan/revie wed results if completed- Aspirin initiation /continuat ion discussed if indicated- Healthy diet reviewed-A bstinence from tobacco, alcohol, and drugs reviewed Increased blood pressure [id number] R03.0 BP 140/78 and 137/81 on repeat today; asymptomat ic- Will obtain baseline pre-e labs today Past pregn dai history of pre-eclampsia [id number] 95211 Z87.59 Past history of pre-eclamp nicholas that developed at term and was inducted in her last - cont daily 81mg ASA Maternal o besity complicating , childbirth and the puerperium, antepartum [id number] 07 O99.211 Maternal obesity - BMI over 40.- referral placed to MFM and nutrition- Early 1hgtt negative, and repeat at 24-28w- Repeat growth scan in 4 weeks (last one 11/18/21)- growth scans at 28, 32 and 36 weeks. BPPs with MFM, starting at 32 weeks Varicella non-immune 371 [id number] Z78.9 Will need vaccine PP [id number] Acacia Holt MD [facility] [address] [phone] 12/04/2021 11:18:24 12/07/2021 12:25:37 Routine care [id number] Z34.91 26 yo G{{1 2* 3 4 5 6 7 8 9}}P{{1 2 3 4 5 6 7 8 9 1001#} } female at {{1 2 3 4 5 6 7 8 9 10 11 12 1 3 14 15 16 17 18 19 20 21 22 2 3 24 25 26 * 27 28 30 31 32 33 34 35 36 3 7 38 39 40 41}}weeks {{0 1 2 3 4 5 6*}} days EGAbased on {{1st trimester US 2nd trimester US 3rd trimester US LMP LMP and confirmed by FTUS#}} is complicate d by morbid obesity and history of pre-eclamp nicholas in last , on ASA. ANTELMO: {{1 2 3 4 5 6 7 8 9 10 11* 12} }/{{1 2 3 4 5 6 7 8 9 10 11 12 13 14 15 16 17 18 1 9 20 21 22 23 24 25 26* 27 28 30 31}}/{{ 1 2021* 2022}} complicate d by morbid obesity and history of pre-eclamp nicholas in last . Plan:1. CHANDU - early 1hgtt negative, will need repeated at 24-28w2. Morbid Obesity - BMI 42.6 with ideal term weight 245-254lbs . MFM comanaging (Recommend weekly NST and BPP at 32 weeks)3. Pre-E prevention - Will need to start 81 mg ASA at 12 weeks EGA4. UDS positive for THC - repeat in 3TM5. Varicella non-immune - need PP booster6. Hx of chlamydia infection- Retest in 3rd trimester7 . Elevated BP x 1- on 11/18/21 visit, baseline pre-e labs normal, M co-managin g; if BP elevated again she will meet gHTN criteria8. Fundal Height 28 cm at 26 weeks- likely due to body habitus with normal growth scan on 11/18/21, continue to monitor Labs- IPN show Apos/RI/VN I/HIV NR/RPR NR- Pap WNL (07/20/21)- C/G/trich {{positive negative* treated}} - HCV screen {{offered refused dr joshi negati ve* positi ve}}- depression screen negative, EPDS 11/07 in FTM. Will repeat in 3TM.- A1c 5.1% Vaccines- Flu {{complete d due refu sed not in season*}}- Covid series {{complete d due refu sed*}}- Tdap {{due at 28 weeks* com pleted ref used}} Imaging- 1st trimester US @9+2w, SIUP, FHR 171, CRL 2.7cm, ANTELMO 03/06/22- 2nd trimester US anatomy survey @20w2d, SIUP, FHR 162, ANTELMO 03/06/22. EFW 55%. Normal anatomy.- US 11/18/21 showed SIUP @24w4d, FHR 153 bpm, EFW 745 grams 53%ile. Normal anatomy Genetics- CF/sickle {{desired drawn norm al* abnorm al refused }}- CF/AFP/mat [id number] {{desired drawn at 16 weeks refu sed normal * abnormal }} and suggests male Baby Boy: [place] To Do: - RTC {{4 2* 1}} weeks for labs (CBC, HIV, RPR, repeat 1hrGTT), tetanus shot, and EPDS screen-Gen etic testing options reviewed-I mmunizatio ns reviewed-D iscussed plan for anatomy scan/revie wed results if completed- Aspirin initiation /continuat ion discussed if indicated- Healthy diet reviewed-A bstinence from tobacco, alcohol, and drugs reviewed [facility] recommendi ng delivery at 39 weeks. Past pregn dai history of pre-eclampsia [id number] 36989 Z87.59 Past history of pre-eclamp nicholas that developed at term and was inducted in her last - cont daily 81mg ASA Maternal o besity complicating , childbirth and the puerperium, antepartum [id number] 07 O99.211 Maternal obesity - BMI over 40.- referral placed to [facility] and nutrition, [facility] comanaging - Early 1hgtt negative, and repeat at 24-28w- Repeat growth scan in 4 weeks (last one 11/18/21)- growth scans at 28, 32 and 36 weeks. BPPs with MFM, starting at 32 weeks Varicella non-immune 371 [id number] Z78.9 Will need vaccine PP History of chlamydial infection 598413500 Z86.19 Left flank pain [id number] 9 R10.9 POC UA done in office today negative for infection- Likely musculoske letal vs secondary to baby [id number] Anupama López MD [facility] [address] [facility] [address] [place] [address] 12/17/2021 13:56:01 12/24/2021 11:20:17 Routine care [id number] Z34.91 26 yo G{{1 2* 3 4 5 6 7 8 9}}P{{1 2 3 4 5 6 7 8 9 1001#} } female at {{1 2 3 4 5 6 7 8 9 10 11 12 1 3 14 15 16 17 18 19 20 21 22 2 3 24 25 26 27 28* 30 31 32 33 34 35 36 3 7 38 39 40 41}}weeks {{0 1 2 3 4 5* 6}} days EGAbased on {{1st trimester US 2nd trimester US 3rd trimester US LMP LMP and confirmed by FTUS#}} is complicate d by morbid obesity and history of pre-eclamp nicholas in last , on ASA. ANTELMO: {{1 2 3 4 5 6 7 8 9 10 11* 12} }/{{1 2 3 4 5 6 7 8 9 10 11 12 13 14 15 16 17 18 1 9 20 21 22 23 24 25 26* 27 28 30 31}}/{{ 2020 2021* 2022}} complicate d by morbid obesity and history of pre-eclamp nicholas in last . Plan:1. CHANDU - early 1hgtt negative, repeat today2. Morbid Obesity - BMI 42.6 with ideal term weight 245-254lbs . MFM comanaging (Recommend weekly NST and BPP at 32 weeks)3. Pre-E prevention - Will continue ASA 81 mg daily4. UDS positive for THC - repeat in 3TM5. Varicella non-immune - need PP booster6. Hx of chlamydia infection- repeat in 3TM was negative7. Elevated BP x 1- on 11/18/21 visit, baseline pre-e labs normal, MFM co-managin g; if BP elevated again she will meet gHTN criteria8. Fundal Height 28 cm at 26 weeks- likely due to body habitus with normal growth scan on 11/18/21, continue to monitor Labs- IPN show Apos/RI/VN I/HIV NR/RPR NR- Pap WNL (07/20/21)- C/G/trich {{positive negative* treated}} - HCV screen {{offered refused dr joshi negati ve* positi ve}}- depression screen negative, EPDS 11/07 in FTM. Will repeat in 3TM.- A1c 5.1% Vaccines- Flu {{complete d due refu sed not in season*}}- Covid series {{complete d due refu sed*}}- Tdap {{due at 28 weeks* com pleted ref used}} Imaging- 1st trimester US @9+2w, SIUP, FHR 171, CRL 2.7cm, ANTELMO 03/06/22- 2nd trimester US anatomy survey @20w2d, SIUP, FHR 162, ANTELMO 03/06/22. EFW 55%. Normal anatomy.- US 11/18/21 showed SIUP @24w4d, FHR 153 bpm, EFW 745 grams 53%ile. Normal anatomy- US 12/16/21 showed SIUP @28w4d, FHR 149 bpm, EFW 1464 grams 82%ile, normal anatomy Genetics- CF/sickle {{desired drawn norm al* abnorm al refused }}- CF/AFP/mat [id number] {{desired drawn at 16 weeks refu sed normal * abnormal }} and suggests male Baby Boy: [place] To Do: - RTC {{4 2* 1}} weeks for CHANDU-Tdap today- 28w, CBC, HIV, RPR, and 1hr GTT today, results pending- UDS at next visit- Discussed L&D precaution s-Discusse d plan for anatomy scan/revie wed results if completed- EDPS at 14, discussed mood, patient reports she is stable currently, no interventi ons needed. Will continue to monitor.-A spirin continuati on discussed- Healthy diet reviewed-A bstinence from tobacco, alcohol, and drugs reviewed-M FM recommendi ng delivery at 39 weeks. Past pregn dai history of pre-eclampsia [id number] 49636 Z87.59 Past history of pre-eclamp nicholas that developed at term and was inducted in her last - cont daily 81mg ASA Maternal o besity complicating , childbirth and the puerperium, antepartum [id number] 07 O99.211 Maternal obesity - BMI over 40.- referral placed to MFM and nutrition, MFM comanaging - Early 1hgtt negative, and repeat at 24-28w- Repeat growth scan in 4 weeks (last one 12/16/21)- growth scans at 28, 32 and 36 weeks. BPPs with MFM, starting at 32 weeks Varicella non-immune 371 619646 Z78.9 Will need vaccine PP History of chlamydial infection 271815754 Z86.19 Repeat testing at 26w was negativeNo symptoms currentlyR eports she and partner were treated Active or passive immunization 581614653 Z23 [id number] Anupama López MD [facility] [address] [facility] [address] [place] [address] 01/15/2022 11:17:11 01/15/2022 18:22:46 Routine care 381886053 Z34.91 26 yo G{{1 2* 3 4 5 6 7 8 9}}P{{1 2 3 4 5 6 7 8 9 1001#} } female at {{1 2 3 4 5 6 7 8 9 10 11 12 1 3 14 15 16 17 18 19 20 21 22 2 3 24 25 26 * 27 28 30 31 32 33 34 35 36 3 7 38 39 40 41}}weeks {{0 1 2 3 4 5 6*}} days EGAbased on {{1st trimester US 2nd trimester US 3rd trimester US LMP LMP and confirmed by FTUS#}} is complicate d by morbid obesity, pre-eclamp nicholas, marijuana use, varicella non-immune , on ASA. ANTELMO: {{1 2 3 4 5 6 7 8 9 10 11* 12} }/{{1 2 3 4 5 6 7 8 9 10 11 12 13 14 15 16 17 18 1 9 20 21 22 23 24 25 26* 27 28 30 31}}/{{ 2020 2021* 2022}} Plan:1. HROB- MFM co-managin g2. Morbid Obesity - BMI 43.3 with ideal term weight 245-254lbs . MFM comanaging (Recommend twice weekly NST and weekly BPP; repeat 1hgtt negative3. Pre-E prevention - Will need to start 81 mg ASA at 12 weeks EGA4. UDS positive for THC - repeat in 3TM positive, patient reports has not used since initial positive test5. Varicella non-immune - need PP booster6. Hx of chlamydia infection- Retest negative7. Pre-eclamp nicholas without severe features- BP readings at home have occasional ly been >140/90, diastolic reading in office today of 90. 140/78 on 11/18. 24 hour urine study with protein >.3 grams. Will add on weekly pre-e labs, already getting twice weekly NST and weekly BPP with MFM. Discussed symptoms of severe features and indication s for emergent evaluation with the patient. Low threshold for steroids. Labs- IPN show Apos/RI/VN I/HIV NR/RPR NR- Pap WNL (07/20/21)- C/G/trich {{positive negative* treated}} - HCV screen {{offered refused dr joshi negati ve* positi ve}}- depression screen negative, EPDS 11/07 in FTM. Repeat - A1c 5.1% Vaccines- Flu {{complete d due refu sed not in season*}}- Covid series {{complete d due refu sed*}}- Tdap {{due at 28 weeks comp leted* ref used}} Imaging- 1st trimester US @9+2w, SIUP, FHR 171, CRL 2.7cm, ANTELMO 03/06/22- 2nd trimester US anatomy survey @20w2d, SIUP, FHR 162, ANTELMO 11/26/22. EFW 55%. Normal anatomy.- US 11/18/21 showed SIUP @24w4d, FHR 153 bpm, EFW 745 grams 53%ile. Normal anatomy.- US 12/16/21 showed SIUP @28w4d, FHR 149 bpm, EFW 1464 grams 82%ile, normal anatomy. Genetics- CF/sickle {{desired drawn norm al* abnorm al refused }}- CF/AFP/mat [id number] {{desired drawn at 16 weeks refu sed normal * abnormal }} and suggests male Baby Boy: [place] To Do: - RTC {{4 2 1*}} week, obtain GBS swab-Uzma ic testing options reviewed-I mmunizatio ns reviewed-D iscussed plan for anatomy scan/revie wed results if completed- Aspirin initiation /continuat ion discussed if indicated- Healthy diet reviewed-A bstinence from tobacco, alcohol, and drugs reviewed - Medical induction at 37weeks gestation for pre-eclamp nicholas Pre-eclampsia [id number] O14.93 -without severe featuresBP has been elevated on 2 occasions, 24 urine protein >.3 gramsPlan- Obtain CBC, CMP, UPC today- Will need weekly labs in addition to twice weekly NST, weekly BPP- Instructed patient on indication s for immediate evaluation on L&D- Medical induction at 37 weeks Maternal o besity complicating , childbirth and the puerperium, antepartum [id number] 07 O99.211 Maternal obesity - BMI over 40.- referral placed to [facility] and nutrition, [facility] comanaging - Early 1hgtt negative, and repeat negative- growth scans at 28, 32 and 36 weeks. Twice weekly NSTs and weekly BPPs with [facility] Varicella non-immune 371 177612 Z78.9 Will need vaccine PP Urgent andrea yfn to urinate 01856789 R39.15 POC UA unremarkab le- Likely secondary to Past pregn dai history of pre-eclampsia [id number] 76591 Z87.59 Past history of pre-eclamp nicholas that developed at term and was inducted in her last - cont daily 81mg ASA [id number] Anupama López MD [facility] [address] [facility] [address] [place] [address] 01/22/2022 11:58:54 01/26/2022 11:56:41 Routine care 295240071 Z34.93 Pre-eclampsia 809460302 O14.93 - without severe featuresBP has been elevated on 2 occasions, 24 urine protein >3 grams Plan- cont daily 81mg ASA- Obtain CBC, CMP today- Continue labs weekly with US; in addition to twice weekly NST, weekly BPP with MFM (seen on 01/22, next 01/26).- Instructed patient on indication s for immediate evaluation on L&D- Medical induction at 37 weeks Maternal o besity complicating , childbirth and the puerperium, antepartum [id number] 07 O99.211 Maternal obesity - BMI over 40.- Has gained 24lbs from pre-pregna ncy weight, goal was 11-20 lbs- referral placed to MFM and nutrition, MFM co-managin g- Early 1hgtt negative, and repeat negative- growth scans at 28, 32 and 36 weeks. Twice weekly NSTs and weekly BPPs with MFM- 32wk growth scan (01/14) normal (EFW 51st%ile). Varicella non-immune 371 935258 Z78.9 - Will need vaccine PP High risk care [id number] O09.93 26 yo female at 33weeks 6days EGA via 1st trimester US. is complicate d by morbid obesity, pre-eclamp nicholas without severe features (on ASA), marijuana use, varicella non-immune . ANTELMO: 03/06/2022 Plan:1. HROB- MFM co-managin g2. Morbid Obesity - BMI 43.3 with ideal term weight 245-254lbs . MFM comanaging (Recommend twice weekly NST and weekly BPP; repeat 1hgtt negative). 3. Pre-E prevention - Continue 81 mg ASA.4. UDS positive for THC - repeat in 3TM positive, patient reports has not used since initial positive test.5. Varicella non-immune - need PP booster.6. Hx of chlamydia infection- Retest negative.7 . Pre-eclamp nicholas without severe features (BP 132/84 today in clinic)- BP readings at home have occasional ly been >140/90, 140/78 on 11/18. 24 hour urine study with protein >3 grams. Will add on weekly pre-e labs, already getting twice weekly NST and weekly BPP with MFM. Discussed symptoms of severe features and indication s for emergent evaluation with the patient. Low threshold for steroids. Labs- IPN show Apos/RI/VN I/HIV NR/RPR NR- Pap WNL (07/20/21)- C/G/trich negative- HCV screen negative- depression screen negative, EPDS 11/07 in FTM. Repeat - A1c 5.1% Vaccines- Flu at next visit- Covid series refused- Tdap completed Imaging- 1st trimester US @9+2w, SIUP, FHR 171, CRL 2.7cm, ANTELMO 03/06/22- 2nd trimester US anatomy survey @20w2d, SIUP, FHR 162, ANTELMO 03/06/22. EFW 55%. Normal anatomy.- US 11/18/21 showed SIUP @24w4d, FHR 153 bpm, EFW 745 grams 53%ile. Normal anatomy.- US 12/16/21 showed SIUP @28w4d, FHR 149 bpm, EFW 1464 grams 82%ile, normal anatomy. Genetics- CF/sickle normal- CF/AFP/mat [id number] normal and suggests male Baby Boy: Anthony To Do:- GBS swab obtained- Genetic testing options reviewed- Immunizati ons reviewed- Aspirin continuati on- Healthy diet reviewed- Abstinence from tobacco, alcohol, and drugs reviewed- Medical induction at 37 weeks gestation for pre-eclamp nicholas- RTC 1 week [id number] Kim collins MD [facility] [address] [facility] [address] [place] [address] 01/29/2022 12:05:17 02/02/2022 15:37:06 High risk care [id number] O09.93 26 yo female at 33weeks 6days EGA via 1st trimester US. is complicate d by morbid obesity, pre-eclamp nicholas without severe features (on ASA), marijuana use, varicella non-immune . ANTELMO: 03/06/2022 Plan:1. HROB- Will transfer to [facility] 2. Morbid Obesity - BMI 43.3 with ideal term weight 245-254lbs . MFM comanaging (Recommend twice weekly NST and weekly BPP; repeat 1hgtt negative). 3. Pre-E prevention - Continue 81 mg ASA.4. UDS positive for THC - repeat in 3TM positive, patient reports has not used since initial positive test.5. Varicella non-immune - need PP booster.6. Hx of chlamydia infection- Retest negative.7 . Pre-eclamp nicholas without severe features (BP 126/76 today in clinic)- BP readings at home have occasional ly been >140/90, 140/78 on 11/18. 24 hour urine study with protein >3 grams. Will add on weekly pre-e labs, already getting twice weekly NST and weekly BPP with MFM. Discussed symptoms of severe features and indication s for emergent evaluation with the patient. Low threshold for steroids. Labs- IPN show Apos/RI/VN I/HIV NR/RPR NR- Pap WNL (07/20/21)- C/G/trich negative- HCV screen negative- depression screen negative, EPDS 11/07 in FTM. Repeat - A1c 5.1%-GBS positive Vaccines- Flu declined- Covid series refused- Tdap completed Imaging- 1st trimester US @9+2w, SIUP, FHR 171, CRL 2.7cm, ANTELMO 03/06/22- 2nd trimester US anatomy survey @20w2d, SIUP, FHR 162, ANTELMO 03/06/22. EFW 55%. Normal anatomy.- US 11/18/21 showed SIUP @24w4d, FHR 153 bpm, EFW 745 grams 53%ile. Normal anatomy.- US 12/16/21 showed SIUP @28w4d, FHR 149 bpm, EFW 1464 grams 82%ile, normal anatomy. Genetics- CF/sickle normal- CF/AFP/mat [id number] normal and suggests male Baby Boy: Anthony To Do:- Genetic testing options reviewed- Immunizati ons reviewed- Aspirin continuati on- Healthy diet reviewed- Abstinence from tobacco, alcohol, and drugs reviewed- Medical induction at 37 weeks gestation for pre-eclamp nicholas- RTC 1 week Pre-eclampsia [id number] O14.93 - without severe featuresBP has been elevated on 2 occasions, 24 urine protein >3 grams Plan- cont daily 81mg ASA- Obtain CBC, CMP today- Continue labs weekly with US; in addition to twice weekly NST, weekly BPP with MFM (seen on 01/22, next 01/26).- Instructed patient on indication s for immediate evaluation on L&D- Medical induction at 37 weeks Maternal o besity complicating , childbirth and the puerperium, antepartum [id number] 07 O99.211 Maternal obesity - BMI over 40.- Has gained 24lbs from pre-pregna ncy weight, goal was 11-20 lbs- referral placed to M and nutrition, MFM co-managin g- Early 1hgtt negative, and repeat negative- growth scans at 28, 32 and 36 weeks. Twice weekly NSTs and weekly BPPs with MFM- 32wk growth scan (01/14) normal (EFW 51st%ile). Varicella non-immune [id number] Z78.9 - Will need vaccine PP Group B st reptococcus carrier complicating [id number] O99.820 GBS done on 01/22/22 was positive. NKDA-will need intrapartu m PCN G, 5million units IV loading dose followed by 2.5-3milli on units q4 hours until delivery-w ill need to keep a close eye on baby afterwards given elevated chances of sepsis [id number] [facility] [address] [address] 02/05/2022 10:15:03 02/09/2022 09:38:00 Routine care [id number] Z34.91 26 yo G{{1 2* 3 4 5 6 7 8 9}}P{{1 2 3 4 5 6 7 8 9 1001#} } female at {{1 2 3 4 5 6 7 8 9 10 11 12 1 3 14 15 16 17 18 19 20 21 22 2 3 24 25 26 * 27 28 30 31 32 33 34 35 36 3 7 38 39 40 41}}weeks {{0 1 2 3 4 5 6*}} days EGAbased on {{1st trimester US 2nd trimester US 3rd trimester US LMP LMP and confirmed by FTUS#}} is complicate d by morbid obesity, pre-eclamp nicholas, marijuana use, varicella non-immune , on ASA. ANTELMO: {{1 2 3 4 5 6 7 8 9 10 11* 12} }/{{1 2 3 4 5 6 7 8 9 10 11 12 13 14 15 16 17 18 1 9 20 21 22 23 24 25 26* 27 28 30 31}}/{{ 2020 2021* 2022}} Plan:1. HROB- MFM co-managin g2. Morbid Obesity - BMI 44.6 with ideal term weight 245-254lbs . MFM comanaging (Recommend twice weekly NST and weekly BPP; repeat 1hgtt negative3. Pre-E prevention - Will need to start 81 mg ASA at 12 weeks EGA4. UDS positive for THC - repeat in 3TM positive, patient reports has not used since initial positive test5. Varicella non-immune - need PP booster6. Hx of chlamydia infection- Retest negative7. Pre-eclamp nicholas without severe features- BP readings at home have occasional ly been >140/90, diastolic reading in office today of 90. 140/78 on 11/18. 24 hour urine study with protein >.3 grams. Continue twice weekly NST and weekly BPP with MFM. Patient had negative pre-e labs done at [facility] yesterday and received 2 doses of betamethas one. Discussed symptoms of severe features and indication s for emergent evaluation with the patient.8. GBS positive- will need intrapartu m PCN Labs- IPN show Apos/RI/VN I/HIV NR/RPR NR- Pap WNL (07/20/21)- C/G/trich {{positive negative* treated}} - HCV screen {{offered refused dr joshi negati ve* positi ve}}- depression screen negative, EPDS 11/07 in FTM. Repeat - A1c 5.1% Vaccines- Flu {{complete d due refu sed not in season*}}- Covid series {{complete d due refu sed*}}- Tdap {{due at 28 weeks comp leted* ref used}} Imaging- 1st trimester US @9+2w, SIUP, FHR 171, CRL 2.7cm, ANTELMO 03/06/22- 2nd trimester US anatomy survey @20w2d, SIUP, FHR 162, ANTELMO 03/06/22. EFW 55%. Normal anatomy.- US 11/18/21 showed SIUP @24w4d, FHR 153 bpm, EFW 745 grams 53%ile. Normal anatomy.- US 12/16/21 showed SIUP @28w4d, FHR 149 bpm, EFW 1464 grams 82%ile, normal anatomy. Genetics- CF/sickle {{desired drawn norm al* abnorm al refused }}- CF/AFP/mat {{desired drawn at 16 weeks refu sed normal * abnormal }} and suggests male Baby Boy: [place] To Do: - RTC {{4 2 1*}} week-Uzma ic testing options reviewed-I mmunizatio ns reviewed-D iscussed plan for anatomy scan/revie wed results if completed- Aspirin initiation /continuat ion discussed if indicated- Healthy diet reviewed-A bstinence from tobacco, alcohol, and drugs reviewed - Medical induction at 37weeks gestation for pre-eclamp nicholas, scheduled on February 13 at 5AM. Maternal o besity complicating , childbirth and the puerperium, antepartum [id number] 07 O99.211 Maternal obesity - BMI over 40.- referral placed to [facility] and nutrition, [facility] comanaging - Early 1hgtt negative, and repeat negative- growth scans at 28, 32 and 36 weeks. Twice weekly NSTs and weekly BPPs with [facility] Pre-eclampsia [id number] O14.93 -without severe featuresBP has been elevated on 2 occasions, 24 urine protein >.3 gramsPlan- Labs were obtained 1 day ago at L&D and were normal- Will need weekly labs in addition to twice weekly NST, weekly BPP- Instructed patient on indication s for immediate evaluation on L&D- Medical induction at 37 weeks per [facility] Varicella non-immune 371 [id number] Z78.9 Will need vaccine PP History of chlamydial infection 081916714 Z86.19 Re-test negative [id number] Anupama López MD [facility] [address] [facility] [address] [place] [address] 02/12/2022 10:57:22 02/15/2022 11:37:28 Routine care [id number] Z34.93 26 yo G{{1 2* 3 4 5 6 7 8 9}}P{{1* 2 3 4 5 6 7 8 9}} female at {{1 2 3 4 5 6 7 8 9 10 11 12 1 3 14 15 16 17 18 19 20 21 22 2 3 24 25 26 27 28 30 31 32 33 3 4 35 36* 3 7 38 39 40 41}}weeks {{0 1 2 3 4 5 6*}} days EGAbased on {{1st trimester US 2nd trimester US 3rd trimester US LMP LMP and confirmed by FTUS#}} is complicate d by morbid obesity, pre-eclamp nicholas, marijuana use, varicella non-immune , on ASA. ANTELMO: {{1 2 3 4 5 6 7 8 9 10 11* 12} }/{{1 2 3 4 5 6 7 8 9 10 11 12 13 14 15 16 17 18 1 9 20 21 22 23 24 25 26* 27 28 30 31}}/{{ 2020 2021* 2022}} Plan:1. HROB- MFM co-managin g2. Morbid Obesity - BMI 44.6 with ideal term weight 245-254lbs . MFM comanaging (Recommend twice weekly NST and weekly BPP; repeat 1hgtt negative3. Pre-E prevention - 81 mg ASA qd4. UDS positive for THC - repeat in 3TM positive, patient reports has not used since initial positive test5. Varicella non-immune - need PP booster6. Hx of chlamydia infection- Retest negative7. Pre-eclamp nicholas without severe features- >2 BPs that were greater than 140/90. 24 hour urine study with protein >.3 grams. Continue twice weekly NST and weekly BPP with MFM. Discussed symptoms of severe features and indication s for emergent evaluation with the patient. Has received 2 doses betamethas one.8. GBS positive- will need intrapartu m PCN Labs- IPN show Apos/RI/VN I/HIV NR/RPR NR- Pap WNL (07/20/21)- C/G/trich negative- HCV screen negative- depression screen negative, EPDS 11/07 in FTM. Repeat - A1c 5.1% Vaccines- Flu refused- Covid series refused- Tdap completed Imaging- 1st trimester US @9+2w, SIUP, FHR 171, CRL 2.7cm, ANTELMO 03/06/22- 2nd trimester US anatomy survey @20w2d, SIUP, FHR 162, ANTELMO 03/06/22. EFW 55%. Normal anatomy.- US 11/18/21 showed SIUP @24w4d, FHR 153 bpm, EFW 745 grams 53%ile. Normal anatomy.- US 12/16/21 showed SIUP @28w4d, FHR 149 bpm, EFW 1464 grams 82%ile, normal anatomy. Genetics- CF/sickle normal- CF/AFP/mat [id number] normal and suggests male Baby Boy: [place] To Do:- RTC -Immunizat ions reviewed-C ontinue daily aspirin- Induction scheduled for tomorrow-H ealthy diet reviewed-A bstinence from tobacco, alcohol, and drugs reviewed Maternal o besity complicating , childbirth and the puerperium, antepartum [id number] 07 O99.211 Maternal obesity - BMI over 40.- referral placed to MFM and nutrition, MFM comanaging - Early 1hgtt negative, and repeat negative- growth scans at 28, 32 and 36 weeks. Twice weekly NSTs and weekly BPPs with MFM- induction scheduled for tmrw [id number] Kim Cunningham-Amie collins MD [facility] [address] [facility] [address] [place] [address] 02/22/2022 09:29:06 02/26/2022 10:13:02 care 113316310 Z39.2 - Breast feeding going well, reports no concerns on mood- Leg swelling as below- BP and symptoms from her pre-eclamp nicholas are doing well.Plan- Follow up in [address] Kulkarni for 3 week PP visit- Follow up in 5 weeks with id for 6 week PP visit/Nexp lanon insertion Past pregn dai history of pre-eclampsia [id number] 67806 Z87.59 BP 124/89 today- Asymptomat icPlan- Continue to monitor for signs of severe features, which patient is well aware of Swelling of lower leg 44 9221392 R22.41 Likely secondary to , however she has been in a hypercoagu lable state with her and not moving around muchPlan- Will obtain Venous duplex US STAT to rule out DVT [id number] ERIKA MONTEMAYOR (ADMINISTRATIVE MEDICAL DIRECTOR) [address] [place] [phone] 03/31/2022 11:00:34 04/08/2022 15:53:50 care 316457234 Z39.2 6 week visit. Pt and baby doing well. No problems with breastfeed ing. BPs stable. Discussed physical, mental, emotional effects. EPDS administer ed, negative. Advised at least 12-18 months between pregnancie s to allow for full recovery. Pt requesting Nexplanon for contracept ion. Continue PNV. RTC in 4 weeks. Insertion of subcutaneous contraceptive 247704668 Z30.9 Pt requesting implant for control, she's had it before and tolerated well. Inserted today w/o issue as detailed in the procedure note. [id number] ERIKA MONTEMAYOR [facility] (ADMINISTRATIVE MEDICAL DIRECTOR) [address] [place] [phone] 10/01/2022 14:01:21 10/11/2022 10:20:22 depression 18252901 F53.0 EPDS 22. Pt denies SI/HI. She is interested in starting medication and counseling . Educated pt on SSRI therapy including side effects. Will start sertraline 50mg. Advised pt that full therapeuti c effects can take 6-8 weeks and may need to titrate dose up. Referral placed to counseling . RTC in 4-6 weeks to reassess symptoms and dosage. [id number] ERIKA MONTEMAYOR (ADMINISTRATIVE MEDICAL DIRECTOR) [address] [place] [phone] 11/05/2022 16:13:15 11/09/2022 15:29:13 depression 24157622 F53.0 Pt's PHQ-9 score was 15 today, improved from 20 last visit. Patient reports improved sleep and mood, but still has breakthrou gh symptoms. Will increase to Sertraline 100 mg daily. Patient told she can back down dose if she is experienci ng any adverse events. RTC in 4-6 weeks. [id number] MD Kip Almanzar (Adult Med) [address] [place] [phone] 07/04/2023 14:13:59 07/06/2023 18:25:09 Pain in coccyx 67075390 M53.3 Chronic pain over coccyx since had baby one and a half years ago. Will get x-ray. Adjustment disorder with depressed mood 53399177 F43.21 Has tolerated Sertraline well in the past, but was not able to get to a therapeuti c dose. Will start at fifty milligrams and increase to 100 mg daily if tolerating well. Discussed side effect of increased suicidal thoughts and agitation. Advised patient to stop medication and seek medical attention if this occurs. Will check Chem panel, CBC, and TSH to rule out systemic causes contributi ng to mood issues. Follow up in six weeks. Will also have patient make counseling appointmen t. Health Concerns Section Related Observation LastModified by Organization Detai ls LastModified Time None Recorded Concern Status LastModified by Organization Details LastModified Time None Recorded Advance Directives Directive N: Payers Encounter Date Sequence Insurance Name Policy Number Policy Inman Covered Member ID Inman Member ID Guarantor Name 02/22/2022 1 [facility] ON OR AFTER 10/09/20 (MEDICAID REPLACEMENT - HMO) Abena Ayon [id number] Abena Ayon 03/31/2022 1 [facility] ON OR AFTER 10/09/20 (MEDICAID REPLACEMENT - HMO) Abena Ayon [id number] Abena Ayon 10/01/2022 1 [facility] ON OR AFTER 10/09/20 (MEDICAID REPLACEMENT - HMO) Abena Ayon [id number] Abena Ayon 11/05/2022 1 [facility] ON OR AFTER 10/09/20 (MEDICAID REPLACEMENT - HMO) Abena Ayon [id number] Abena Ayon 07/04/2023 1 [facility] ON OR AFTER 10/09/20 (MEDICAID REPLACEMENT - HMO) Abena Ayon [id number] Abena Ayon Notes Date Note Type Note Provider Name and Address Organization Details Recorded Time 02/22/2022 text/html 26 yo who delivered a viable male infant at 37w2d EGA via on 02/15/2022 at 11:33 PM presenting for a BP check. Last weight check for baby, mother mentioned increased swelling in her LEs, without any other pre-e symptoms. BP was at a normal level as well, but we wanted her to be seen to monitor BP. She reports swelling in her legs (R>L), but denies CARMICHAEL, vision changes, SOB, abd pain. Labor was induced.Cytotec, Cervidil and Cook catheter was used for cervical ripening.Labor was augmented by Pitocin and AROM.Epidural anesthesia was used for intrapartum pain control.Intrapartum care was uncomplicated.Vincent graham was complicated by 2nd degree perineal laceration.Placenta was delivered spontaneously after 7 minutes.EBL 452 mL.Apgars 9/9 and weight 6 lbs, 13 oz (3110 g). Course: complicated by morbid obesity, pre-eclampsia, marijuana use, varicella non-immune, and chlamydia in 1st trimester (negative in 3rd) Kim Cali MD Attn: [address] [place], [address], [facility] 02/22/2022 16:02:49 03/31/2022 text/html VisitReported bypatient.Onset/Gerald ing:date of delivery: (02/15/22) Quality: Context:complicatio ns of : pre-eclampsia; complications of labor: none; laceration: (2nd degree); complications: none; feeding choice: breast; good support from partner/family Associated Symptoms:no abnormal bleeding; no pelvic pain; laceration well healed; no constipation; no fecal incontinence; no dysuria; no urinary incontinence; no fever; no problems; no mastitis 26 yo who delivered a viable male infant at 37w2d EGA via on 02/15/2022. complicated by morbid obesity, pre-eclampsia, marijuana use, varicella non-immune, and chlamydia in 1st trimester (negative in 3rd). Labor was induced.Cytotec, Cervidil and Cook catheter was used for cervical ripening.Labor was augmented by Pitocin and AROM.Epidural anesthesia was used for intrapartum pain control.Intrapartum care was uncomplicated.Vincent graham was complicated by 2nd degree perineal laceration. Pt and baby Anthony are doing well. She has no concerns today. Wanting Nexplanon for control. She has had it in the past and tolerates well. ERIKA MONTEMAYOR Attn: [address] [place], [address], [facility] 04/01/2022 12:04:00 10/01/2022 text/html Anxiety/Depressi onR eported bypatient.Quality:m ood worse Severity:denies suicidal ideations;interfere nce with household activities;interfer ence with sleep Duration:symptoms lasting over 2 weeks Context:major life stressors Modifying Factors:social support Associated Symptoms:denies homicidal ideations; no significant weight gain; no significant weight loss; no visual/auditory hallucinations; no delusions; no shortness of breath;anxiety;depr ession;sleep disturbances;anhedo judi;feeling guilty;despair/hope lessness;decreased effectiveness/produ ctivity 27yo presenting for depression. She delivered healthy baby boy Feb 2022. She reports her mood has been worsening over the past few months. She has good social support and has been relying on them but she feels like she needs additional support. She denies SI/HI. ERIKA MONTEMAYOR Attn: Accounting[address] [place], [address], [facility] 10/13/2022 11:52:08 11/05/2022 text/html Abena is a 27 yo F with depression. She was started on Zoloft a month ago. Abena feels like her mood has improved since her last visit. She feels as though her sleep and energy have improved. She reports that she was nearly crying everyday before the medication but that has happened ~ 2 - 3 times this past month. Denies SI/HI. ERIKA MONTEMAYOR Attn: [address]ing[address] [place], [address], [facility] 11/05/2022 17:18:37 07/04/2023 text/html here for prescriptions refill, medication for depression, medication was helpful at first, started taking it three months ago, has been off it for a month, is currently having a hard time, recently from child's dad, kicked out of dad's house, living with mother, no motivation, tired, wants to lay down and sleep, no thoughts of hurting self, crying spells, decreased appetite, sleeps okay once falls asleep, tail bone has hurt since gave a year and a half ago, hurts to sit on, ibuprofen doesn't help, tried Lidocaine patch and it helped, sits on side, anxiety and depression in family, no thyroid problems, dads side diabetes, no manic depression, three or four days doesn't want to do anything, then stays up all night one day getting stuff done, next couple days back to feeling down, no impulsive behavior, no manic depression in family, dad committed suicide, Desiree Bazzi MD Attn: Accounting[address] [facility], [place], [address], [place] [facility] 07/04/2023 15:23:36 OBGyn Episode Ob Episode Information Episode Created Date Number of Fetuses Patient Bloodtype Patient rh Status Prepregnancy Weight lbs Domestic Partner Domestic Partner Phone Father Name Chain Mortiser Operator Status 07/21/19 22 1 A Positive 234 Niranjan CLOSED Fetus Data First Name Last Name Admitted to NICU Weight (g) Sex Living Outcome Pediatric Complications Fetus ID Race Codes Race Delivery Type Anthony vitale false 3090.09 55 M true Full Term [id number] 8-6 Afric an Ameri can Vaginal Problems Problem Notes yes to circ, breast feed, PP BC BCP, dietary supervisor Carmen Fatima Problem Name Start Date End Date Resolution Snomed Code Not e Group B Streptococcus carrier 01/22/2022 [id number] Will need intrapartum PCN Past history of pre-eclampsia 07/20/2021 [id number] developed a t term and was induced. Will start 81mg ASA at 12 weeks. M comanaging. Maternal obesity complicating , childbirth and the puerperium, antepartum 07/20/2021 [id number] [facility] referral an d testing at 36w Constipation 08/17/2021 [id number] starti ng miralax and colace Varicella non-immune 08/17/2021 [id number] 9 needs vaccine PP Antelmo Calculation Initial Antelmo Date Initial Exam Date Initial Exam Provider Initial Ultrasound Date Last Menstrual Period Date Ultra Sound Weeks Gestation 03/06/2022 07/20/2021 [email or web address] 08/03/2021 05/30/2021 9 Eighteen To Twenty Week Antelmo Update Ultra Sound Date Fundal Height At Umbil Quickening Date Ultra Sound Latest Weeks Gestation Final Antelmo Confirmed By Final Antelmo Confirmed Date Final Antelmo Date Ultra Sound Latest Days Gestation 0 03/06/20 22 0 Pre- Flowsheet Flowsheet Date 07/20/2021 Lara Score Blood Edema Fundus Height Fundus Units Glucose Ketones Leukocytes Nitrite Labor Signs Protein Cervic Dilation Cervic Effacement Cervic Station Type Weight in lbs Pre/Post Dialysis Refused With clothes 234.849554779702 BP Diastolic BP Location Tested BP Systolic BP Type 74 122 sitting Fetus Heart Rate Present Fetus Movement Comments NOB visit, LMP 05/30/21 defin ite. Pap and NOB labs today. Desires [id number]. Sending for dating US. Start 81mg ASA at 12 weeks. Note BMI 40.8, will need MFM referral for growth scans in 3TM and testing. Flowsheet Date 08/17/2021 Lara Score Blood Edema Fundus Height Fundus Units Glucose Ketones Leukocytes Nitrite Labor Signs Protein Cervic Dilation Cervic Effacement Cervic Station none Type Weight in lbs Pre/Post Dialysis Refused With clothes 235.670652705947 BP Diastolic BP Location Tested BP Systolic BP Type 70 122 sitting Fetus Heart Rate Present A 162 Present Fetus Movement Comments No VB/VD/LOF/CTX. Will get C F and [id number] today. Note IPN show varicella non-immune. She has appt for anatomy scan October 19. Start ASA on 08/22/21 for PMH pre-eclampsia. RTC 5 weeks for early 1ghtt then. Flowsheet Date 09/21/2021 Lara Score Blood Edema Fundus Height Fundus Units Glucose Ketones Leukocytes Nitrite Labor Signs Protein Cervic Dilation Cervic Effacement Cervic Station none Type Weight in lbs Pre/Post Dialysis Refused With clothes 241.776006966255 BP Diastolic BP Location Tested BP Systolic BP Type 72 122 sitting Fetus Heart Rate Present A 132 Present Fetus Movement Comments No VB/VD/LOF/CTX. Reviewed a ll labs with pt today. Early 1hgtt due to obesity today. Will need it repeated at 24w. Anatomy scan in 4 weeks. Will need 2TM labs and Tdap 26-28w. Pt prefers to come to [place] for OB visits until 28w, then transfer to [facility] for 32w visit. I recommended she call [facility] office to make appt with Dr Patricio Stuart. Flowsheet Date 10/22/2021 Lara Score Blood Edema Fundus Height Fundus Units Glucose Ketones Leukocytes Nitrite Labor Signs Protein Cervic Dilation Cervic Effacement Cervic Station 28 cm Type Weight in lbs Pre/Post Dialysis Refused Weight 243.477418262387 BP Diastolic BP Location Tested BP Systolic BP Type 76 120 sitting Fetus Heart Rate Present A 155 Present Fetus Movement Comments Early 1hgtt negative, will r epeat at next appt. Anatomy Scan reviewed with patient. Follow up in 4 weeks. Flowsheet Date 11/18/2021 Lara Score Blood Edema Fundus Height Fundus Units Glucose Ketones Leukocytes Nitrite Labor Signs Protein Cervic Dilation Cervic Effacement Cervic Station 28 cm Type Weight in lbs Pre/Post Dialysis Refused Weight 249.675969492095 BP Diastolic BP Location Tested BP Systolic BP Type 78 140 sitting 81 137 Fetus Heart Rate Present A 145 bpm Present Fetus Movement Comments BP slightly elevated today a t 140/78 and 137/82 on repeat. Will Obtain baseline pre-eclampsia labs. Counseled patient on improving diet and exercising. Follow up in 2 weeks. Flowsheet Date 12/04/2021 Lara Score Blood Edema Fundus Height Fundus Units Glucose Ketones Leukocytes Nitrite Labor Signs Protein Cervic Dilation Cervic Effacement Cervic Station 28 cm Type Weight in lbs Pre/Post Dialysis Refused With clothes 248.207902956034 BP Diastolic BP Location Tested BP Systolic BP Type 66 110 sitting Fetus Heart Rate Present A 150 bpm Present Fetus Movement Comments HROB visit. Now being comana ged by [facility] for morbid obesity. BP normal today. Discussed obtaining labs in 1-2 weeks and follow up in this time. Flowsheet Date 12/17/2021 Lara Score Blood Edema Fundus Height Fundus Units Glucose Ketones Leukocytes Nitrite Labor Signs Protein Cervic Dilation Cervic Effacement Cervic Station none 30 cm none Type Weight in lbs Pre/Post Dialysis Refused Weight 249.986846781362 BP Diastolic BP Location Tested BP Systolic BP Type 70 108 sitting Fetus Heart Rate Present A 145 Present Fetus Movement A Yes Comments Doing well today, no acute c omplaints. Vitals stable. Had growth scan with [facility] yesterday. Will get 28 wk labs today. Flowsheet Date 01/15/2022 Lara Score Blood Edema Fundus Height Fundus Units Glucose Ketones Leukocytes Nitrite Labor Signs Protein Cervic Dilation Cervic Effacement Cervic Station 32 cm Type Weight in lbs Pre/Post Dialysis Refused With clothes 252.755099665056 BP Diastolic BP Location Tested BP Systolic BP Type 90 136 sitting Fetus Heart Rate Present A 146 bpm Present Fetus Movement Comments HROB visit. Diagnosed with p re-eclampsia today given elevated BP and 24 hr urine protein level. Will obtain pre-e labs today which should be obtained weekly to go with the twice weekly NSTs and weekly BPPs she is already scheduled out for with [facility]. Medical induction at 37 weeks gestation. Will obtain GBS next visit. Flowsheet Date 01/22/2022 Lara Score Blood Edema Fundus Height Fundus Units Glucose Ketones Leukocytes Nitrite Labor Signs Protein Cervic Dilation Cervic Effacement Cervic Station none 32 cm Type Weight in lbs Pre/Post Dialysis Refused Weight 258.900950149772 BP Diastolic BP Location Tested BP Systolic BP Type 84 132 sitting Fetus Heart Rate Present A 150 Present Fetus Movement Comments - GBS/CBC/CMP obtained.- F/u with MFM on 01/26/22.- Seen by [facility] today; NST/BPP w/o concerns.- F/u in 1wk for HROB. Flowsheet Date 01/29/2022 Lara Score Blood Edema Fundus Height Fundus Units Glucose Ketones Leukocytes Nitrite Labor Signs Protein Cervic Dilation Cervic Effacement Cervic Station 35 cm Type Weight in lbs Pre/Post Dialysis Refused With clothes 260.167276230608 BP Diastolic BP Location Tested BP Systolic BP Type 76 126 sitting Fetus Heart Rate Present A 134 Present Fetus Movement A Yes Comments HROB visit. Diagnosed with p re-eclampsia earlier in third trimester Will obtain weekly pre-e labs today, She is seeing [facility] today as well for twice weekly NSTs and weekly BPPs. Medical induction at 37 weeks gestation. GBS positive discussed intrapartum care with PCN. SOMMER. Per Dr. Holt will be transferred to [facility] Flowsheet Date 02/05/2022 Lara Score Blood Edema Fundus Height Fundus Units Glucose Ketones Leukocytes Nitrite Labor Signs Protein Cervic Dilation Cervic Effacement Cervic Station 37 cm Type Weight in lbs Pre/Post Dialysis Refused Weight 260.833041290635 BP Diastolic BP Location Tested BP Systolic BP Type 60 130 sitting Fetus Heart Rate Present A 136 bpm Present Fetus Movement Comments Patient will not be transfer red to [facility]. Seen today in clinic for HROB due to pre-eclampsia. Pre-e labs negative yesterday on L&D. Received 2 doses of steroid. No signs of severe features today. Continue follow up with M for twice weekly NSTs and weekly BPPs. Induction scheduled for Feb 13 at 5AM. Flowsheet Date 02/12/2022 Lara Score Blood Edema Fundus Height Fundus Units Glucose Ketones Leukocytes Nitrite Labor Signs Protein Cervic Dilation Cervic Effacement Cervic Station 37 cm Type Weight in lbs Pre/Post Dialysis Refused Weight 258.722420223836 BP Diastolic BP Location Tested BP Systolic BP Type 90 124 sitting Fetus Heart Rate Present A 145 Present Fetus Movement Comments Induction scheduled for tmrw morning. Flowsheet Date 02/22/2022 Lara Score Blood Edema Fundus Height Fundus Units Glucose Ketones Leukocytes Nitrite Labor Signs Protein Cervic Dilation Cervic Effacement Cervic Station Type Weight in lbs Pre/Post Dialysis Refused Weight 257.981349864057 BP Diastolic BP Location Tested BP Systolic BP Type 89 124 sitting Fetus Heart Rate Present Fetus Movement Comments Flowsheet Date 10/01/2022 Lara Score Blood Edema Fundus Height Fundus Units Glucose Ketones Leukocytes Nitrite Labor Signs Protein Cervic Dilation Cervic Effacement Cervic Station Type Weight in lbs Pre/Post Dialysis Refused With clothes 258.307751942776 BP Diastolic BP Location Tested BP Systolic BP Type 88 L arm 118 sitting Fetus Heart Rate Present Fetus Movement Comments Menstrual History Last Menstrual Date Menses Monthly On Bcp Conception Prior Menses Frequency Hcg Plus Date Menarche Onset Age 0205/30/2021 true false 7 14 Genetic Screening And Infection History Question Response Note Patient's Age Will Be 35 Yea rs Or Older At Estimated Date of Delivery false Thalassemia (Jordanian, Lithuanian, Mediterranean, Or Background): MCV < 80 false Neural Tube Defect (Meningom yelocele, Spina Bifida, Or Anencephaly) false Congenital Heart Defect false Down Syndrome false Ferny-Sachs (eg, Synagogue, Cajun, Arabic-Trimble) f alse Jason Disease false Sickle Cell Disease Or Trait () false Hemophilia Or Other Blood Disorders false Muscular Dystrophy false Cystic Fibrosis false [place]'s Chorea false Mental Retardation/Autism false If Yes, Was Person Tested For Fragile X? false Other Inherited Genetic Or Chromosomal Disorder false Maternal Metabolic Disorder (eg, Type 1 Diabetes , PKU) false Patient Or Baby's Father Had A Child With Defects Not Listed Above false Recurrent Loss, Or A Stillbirth false Medications (including Suppl ements, Vitamins, Herbs, OTC Drugs), Illicit/Recreational Drugs, Alcohol false If Yes, Agent(s) And Strength/Dosage false Any Other Genetic History false Live With Someone With TB Or Exposed To TB false Patient Or Partner Has History Of Genital Herpes false Rash Or Viral Illness Since Last Menstrual Perio d false History Of STD, Gonorrhea, Chlamydia, HPV, Syphi lis true Chlamydia Other Infection History false History of HIV false History of Hepatitis false Prior GBS-infected child false Delivery Information Delivery Date Delivery Type Labor Anesthesia Weeks Gestation Incision Type Labor Labor Length Hrs Delivered By Post Complications Tubal Sterilization Discharge Date Comments 2 Induce d Regional-Ep idural 37.3 false Ernesto Villarreal MD None 02/17/2022 Discharge Information Feeding Method Contraceptive Method Maternal HG B and HCT Levels Combination Nexplanon Ob Episode Information Episode Created Date Number of Fetuses Patient Bloodtype Patient rh Status Prepregnancy Weight lbs Domestic Partner Domestic Partner Phone Father Name Chain Mortiser Operator Status 07/16/19 16 1 CLOSED Fetus Data First Name Last Name Admitted to NICU Weight (g) Sex Living Outcome Pediatric Complications Fetus ID Race Codes Race Delivery Type 3090.09 55 M Full Term [id number] Vaginal Antelmo Calculation Initial Antelmo Date Initial Exam Date Initial Exam Provider Initial Ultrasound Date Last Menstrual Period Date Ultra Sound Weeks Gestation 0 Eighteen To Twenty Week Antelmo Update Ultra Sound Date Fundal Height At Umbil Quickening Date Ultra Sound Latest Weeks Gestation Final Antelmo Confirmed By Final Antelmo Confirmed Date Final Antelmo Date Ultra Sound Latest Days Gestation 0 0 Menstrual History Last Menstrual Date Menses Monthly On Bcp Conception Prior Menses Frequency Hcg Plus Date Menarche Onset Age Delivery Information Delivery Date Delivery Type Labor Anesthesia Weeks Gestation Incision Type Labor Labor Length Hrs Delivered By Post Complications Tubal Sterilization Discharge Date Comments 1 Regional-Ep idural 40 false 12 Kevin Discharge Information Feeding Method Contraceptive Method Maternal HG B and HCT Levels
[2024-06-03 13:58] VITALS: BP 130/75; PULSE 115; RESP 18; TEMP 37.9; O2SAT 97
--- OUTSIDE RECORDS SUMMARY | 2024-06-03 15:06 | XMS_ITS | Clinical Summary ---
Author Organization [facility] Address [address] [place] [address] Care Team Providers Care Honing Machine Try Out Setter Name Role Phone Unavailable Primary Care Provider Unavailabl e Source Comments [facility],non-owned Affiliates and Associated Physician Practices is amultiple site organization consisting of ambulatory clinics and hospital sitesin [place], [place], [place] and [place]. This disclosure is being madepursuant to the Care Everywhere program and may not contain all information available regarding this patient. Last updated 17.[facility] [employer] Allergies No known active allergies Medications * [...]
--- OUTSIDE RECORDS SUMMARY | 2024-06-03 15:06 | XMS_ITS | Clinical Summary ---
Author Organization [facility] Address [address] [place] [address] Care Team Providers Care Dental Insurance Biller Name Role Phone None, Provider MD Primary [...] Active Problems Problem Noted Date Diagnosed Date ([facility]) 02/13/2022 Pre-eclampsia ([facility]) 02/03/2022 Other headache syndrome 01/31/2022 Social History [...] Comments Blood Pressure 134/82 02/17/2022 7:30 AM CONSTRUCTION TEACHER notified Genevieve FRANK Pulse 73 02/17/2022 7:30 AM CONSTRUCTION TEACHER Temperature 36.7 C (98.1 F) 02/17/2022 7:30 AM CONSTRUCTION TEACHER Respiratory Rate 14 02/17/2022 9:42 AM CONSTRUCTION TEACHER Oxygen Saturation 100% 02/17/2022 7:3 0 AM CONSTRUCTION TEACHER Inhaled Oxygen Concentration - - Weight 117.9 [...] Most Recently Relevant to Health Maintenance [place] [address] [address] [place] [address] Advance Directives * Full Code (Latest Code Status on File) Date Activated Date Inactivated Comments 02/13/2022 5:13 AM 02/16/2022 12:09 AM Care Teams Dental Insurance Biller Relationship Specialty Start Date End Date None, Provider, PCP - General UNKNOWN PHYSICIAN SPECIALTY 01/31/22
--- OUTSIDE RECORDS SUMMARY | 2024-06-03 15:06 | XMS_ITS | Encounter Summary ---
Author Organization [facility] Address [facility] [place] [address] Care Team Providers Care Annual Campaign Manager Name Role Phone None, Provider Primary Care Provider Emory minaya Encounter Details Date Type Department Care Team (Late st Contact Info) Description 02/23/2022 Hospital Follow-up Call [facility] [place] [address] Alia Mcclure RN Social History [...] Coronavirus/COVID-19? No / Unsure 02/16/2022 7:14 AM AUTOMOBILE MECHANIC MOTOR documented as of this encounter Functional Status [...] on filedocumented in this encounter Care Teams Annual Campaign Manager Relationship Specialty Start Date End Date None, Provider, PCP - General UNKNOWN PHYSICIAN SPECIALTY 01/31/22 documented as of this encounter
--- OUTSIDE RECORDS SUMMARY | 2024-06-03 15:06 | XMS_ITS | Patient Health Summary ---
Author Organization [facility] Address [address] [place] [address] Care Team Providers Care Emergency Management Consultant Name Role Phone Unavailable Primary Care Provider Unavailabl e Note from [facility],non-owned Affiliates and Associated Physician Practices is amultiple site organization consisting of ambulatory clinics and hospital sitesin [place], [place], [place] and [place]. This disclosure is being madepursuant to the Care Everywhere program and may not contain all information available regarding this patient. Last updated 17.[facility] Allergies No known active allergies Medications * [...] 10/19/2021) Performed for Encounter for anatomic survey ([facility]), 20 weeks gestation of (HCC), Class 2 obesity due to excess calories without serious comorbidity with body mass index (BMI) of 37.0 to 37.9 in adult, History of pre- eclampsia in prior , currently (HCC) * SONOGRAM - TRANSVAGINAL(Performed 08/03/2021) Performed for Encounter to establish gestational age using ultrasound ([facility]), 9 weeks gestation of (HCC), Class 3 severe obesity due to excess calories in adult, unspecified BMI, unspecifiedwhether serious comorbidity present (HCC), History of pre-eclampsia in prior , currently ([facility]) Results * BIOPHYSICAL PROFILE W NST (02/09/2022 10:33 AM CDT) Only the most recent of5 resultswithin the time period is included. Anatomical Region Laterality Modality Other 02/09/2022 10:3 3 AM CDT Narrative 02/09/2022 11:20 AM CDT [facility] PHONE: FAX: Pat. Name: ABENA HOLT Shanice. No: [id number] Study Date: 02/09/2022 10:33am , Age: 02 1995, 26 Pregnancies: 2, Para 1 Height: 64 in Weight: 220 lb LMP: 05/30/2021 GA by LMP: 36w3d GA by Base: 36w3d CARLOS: 03/06/2022 GA by US: 37w2d CARLOS: 02/28/2022 GA Selected: 36w3d (LMP) CARLOS: 03/06/2022 Referring MD: Dot Cabral MD Repairer Welding Systems And Equipment: Beronica Umanzor [facility] CPT4: 02202,87051 BMI: 37.76 Hist/Ind: Hypertension Class II obesity History of preeclampsia MEASUREMENTS & AGE GROWTH EVALUATION Measurement GA Range Srce %for GA Ratios ----- ---- ------- BPD 9.4 cm 38w2d (08r1b-28r6f) Hadl BPD 95% FL/BPD 0.72 (0.71 - 0.87) HC 33.8 cm 38w6d (64t6s-96k5z) Hadl HC 79% FL/AC 0.20 (0.20 - 0.24) AC 33.4 cm 37w2d (09k6s-54q0j) Hadl AC 84% HC/AC 1.01 (0.92 - 1.11) FL 6.8 cm 34w6d (47i2g-61w8g) Hadl FL 12% CI 0.79 (0.70 - 0.86) HL 6.3 cm 36w4d (44y1x-37g3p) Chauncey HL 54% GA for sonogram 37w2d (09q6d-93s3l) Weight Estimate: based on (BPD,HC,AC,FL) Avg Weight: [...] <Electronic Signature> 02/09/2022 11:20am Ernesto Villarreal MD [facility] ORDERABLES * (ABNORMAL) CBC W AUTO [...] Comment: REPORT COMMENT: STAT Test Performed at: [email or web address] [email or web address] [address] ROME FRANK MD 01/13/2022 1:01 PM CDT 01/13/2022 1:02 PM CDT Jessy Phillip CLINICAL RESOURCE NURSE-ELECTRIC MOTOR REPAIRING SUPERVISOR LAB - HEMATOLOG Y ORDERABLES [address] [address] * (ABNORMAL) COMPREHENSIVE METABOLIC PANEL (01/13/2022 1:01 [...] 29 U/L [facility]ST Comment: Test Performed at: [facility] [email or web address] [address] ROME FRANK MD 01/13/2022 1:01 PM CDT 01/13/2022 1:02 PM CDT Jessy Fisher CLINICAL RESOURCE NURSE-ELECTRIC MOTOR REPAIRING SUPERVISOR LAB - CHEMISTRY ORDERABLES [address] [address] * SONOGRAM - COMPLETE (12/16/2021 2:14 PM CDT) Only the most recent of3 resultswithin the time period is included. Anatomical Region Laterality Modality Other 12/16/2021 2:1 4 PM CDT Narrative 12/16/2021 3:10 PM CDT [facility] PHONE: FAX: Pat. Name: ABENA HOLT Pat. No: [id number] Study Date: 12/16/2021 2:14pm , Age: 02 1995, 26 Pregnancies: 2, Para 1 Height: 64 in Weight: 241 lb LMP: 05/30/2021 GA by LMP: 28w4d GA by Base: 28w4d CARLOS: 03/06/2022 GA by US: 30w1d CARLOS: 02/23/2022 GA Selected: 28w4d (LMP) CARLOS: 03/06/2022 Referring MD: Dot Cabral MD Repairer Welding Systems And Equipment: Beronica Umanzor RDMS CPT4: 67359 BMI: 41.36 Hist/Ind: Complete Anatomy Screen Reassess Kidneys Class II Obesity Hx Pre-E MEASUREMENTS & AGE GROWTH EVALUATION Measurement GA Range Srce %for GA Ratios ----- ---- ------- BPD 7.7 cm 30w6d (81o7u-50k3q) Hadl BPD 94% FL/BPD 0.71 (0.71 - 0.87) HC 27.8 cm 30w3d (66f1c-46h7w) Hadl HC 71% FL/AC 0.21 (0.20 - 0.24) AC 26.0 cm 30w1d (00l0h-21e3w) Hadl AC 85% HC/AC 1.07 (0.99 - 1.18) FL 5.5 cm 29w0d (91m2k-22e6l) Hadl FL 44% CI 0.79 (0.70 - 0.86) HL 5.4 cm 31w1d (00u8e-68m5c) Chauncey HL 92% GA for sonogram 30w1d (60a9u-84y6d) Weight Estimate: based on (BPD,HC,AC,FL) Avg Weight: [...] ultrasound. Patient had a consult with the SKIN FITTER today RECOMMEND: Ultrasound in 4 weeks for growth assessment and to begin weekly BPP and NST Thank you for allowing us the opportunity to care for your patient. Willis Calles MD <Electronic Signature> 12/16/2021 03:10pm Anupama óLpez MD [facility] ORDERABLES * SONOGRAM - TRANSVAGINAL (08/03/2021 10:48 AM CDT) Anatomical Region Laterality Modality Other 08/03/2021 10:4 8 AM CDT Narrative 08/03/2021 12:14 PM CDT [facility] PHONE: FAX: Pat. Name: ABENA HOLT Pat. No: [id number] Study Date: 08/03/2021 10:48am , Age: 02 1995, 26 Pregnancies: 2, Para 1 Height: 64 in Weight: 220 lb LMP: 05/30/2021 GA by LMP: 09w2d GA by US: 09w4d CARLOS: 03/04/2022 GA Selected: 09w4d (Sonographic) CARLOS: 03/04/2022 Referring MD: Kwesi Ivan MD Repairer Welding Systems And Equipment: Brittney Zepeda RDMS, RDCS CPT4: 10325 BMI: 37.76 Hist/Ind: Confirm dates Obesity Hx Pre-E MEASUREMENTS & AGE GROWTH EVALUATION Measurement GA Range Srce %for GA Ratios ----- ---- ------- CRL 2.7 cm 09w4d (42f6i-99f9c) Hadl CRL 50% GA for sonogram 09w4d (09j1t-64c3w) based on (CRL) Avg Heart Rate: 171 [...]
--- OUTSIDE RECORDS SUMMARY | 2024-06-03 15:06 | XMS_ITS | Referral Summary ---
Author Organization [facility] Address [address] [place] [address] Care Team Providers Care Concrete Fence Builder Name Role Phone Unavailable Primary Care Provider Unavailabl e Source Comments [facility],non-owned Affiliates and Associated Physician Practices is amultiple site organization consisting of ambulatory clinics and hospital sitesin [place], [place], [place] and [place]. This disclosure is being madepursuant to the Care Everywhere program and may not contain all information available regarding this patient. Last updated 17.[facility] [employer] Allergies No known active allergies Medications * [...]
[2024-06-03] MEDS: predniSONE 20 MG TABLET 40 MG PO (15:23)
[2024-06-03] MEDS: ACETAMINOPHEN 500 MG TABLET 1000 MG PO (15:26)
--- NOTE | 2024-06-03 15:26 | ED_ITS ---
HPI - URI/Sore Throat General Chief Complaint: Upper Respiratory Infection Stated Complaint: cough and cold sx's x 3 days, fever Time Seen by Provider: 06/03/24 14:46 Source: patient Mode of arrival: ambulatory Limitations: no limitations History of Present Illness HPI Narrative: This is a 29-year-old female that presents to the emergency department for cold symptoms since yesterday. Reports fever, cough, congestion, generalized weakness. Reports myalgias. Reports similar symptoms in her child. Related Data Allergies Allergy/AdvReac Type Severity Reaction Status Date / Time No Known Allergies Allergy Verified 06/03/24 14:46 Review of Systems Review of Systems: CONSTITUTIONAL: Denies fever ENT: Reports rhinorrhea, congestion CARDIOVASCULAR: Denies chest pain RESPIRATORY: Reports cough All systems reviewed & are unremarkable except as noted in HPI and below PMFSH Past Medical History Medical History (Updated 06/03/24 @ 16:50 by Casandra Pérez PA-C) Healthy female adult Surgical History Surgical History (Updated 05/21/21 @ 20:[address] MD) No history of previous surgery Social History Social History (Updated 05/21/21 @ 20:[address] MD) Smoking status: Current every day smoker Exam Narrative: GENERAL: Well-appearing, well-nourished, and in no acute distress. HEAD: Normocephalic, atraumatic. EYES: EOMI. ENT: Nares clear, no rhinorrhea or epistaxis. Mucous membranes moist. Oropharynx without tonsillar hypertrophy exudate or other lesions. Bilateral TMs pearly castro non-bulging NECK: Supple. No adenopathy or masses. CHEST: No respiratory distress. Diffuse expiratory wheezing. No rales or rhonchi HEART: Regular rate and rhythm. No murmur heard. Normal peripheral pulses. EXTREMITIES: Normal range of motion. No edema. SKIN: Warm, dry, no rash. NEURO: No focal deficits. Alert and oriented x3. PSYCH: Normal mood and affect Course Course Emergency Course: Patient updated on her workup and agrees with plan of care. Reports improvement after nebulizer treatment. Ready for discharge Vital Signs Vital signs: Vital Signs Temperature 100.3 F H 06/03/24 13:58 Pulse Rate 115 H 06/03/24 13:58 Respiratory Rate 18 06/03/24 13:58 Blood Pressure 130/75 06/03/24 13:58 Pulse Oximetry 97 06/03/24 13:58 Oxygen Delivery Room Air 06/03/24 13:58 Temperature 100.3 F H 06/03/24 13:58 Pulse Rate 120 H 06/03/24 15:58 Respiratory Rate 24 H 06/03/24 15:58 Blood Pressure 130/75 06/03/24 13:58 Pulse Oximetry 97 06/03/24 13:58 Oxygen Delivery Room Air 06/03/24 14:52 MDM - URI/Sore Throat MDM Narrative Medical decision making narrative: Patient presents the emergency department for cold symptoms present since yesterday. Febrile and tachycardic upon arrival. She is influenza A positive. Chest x-ray without acute cardiopulmonary abnormality. Wheezing upon arrival, this was improved after nebulizer treatment. She was updated on her workup. Reports she is ready for discharge. Will be continued on oral steroid and given albuterol inhaler. Will be started on Tamiflu. She is to follow up with primary provider. She was given warnings to return to the ER Differential Diagnosis Differential diagnosis: Likely upper respiratory infection, viral infection, bronchitis, influenza and other (pneumonia) Lab Data Attestation: I reviewed the patient's lab results. Labs: Lab Results 06/03/24 Range/Units 15:59 Influenza A (RT-PCR) Positive A (Negative) Influenza B (RT-PCR) Negative (Negative) RSV (RT-PCR) Negative (Negative) SARS-CoV-2 RNA (RT-PCR) Negative (Negative) Imaging Data Radiologist's impression: ITS Impressions Chest X-Ray 06/03/24 15:13 IMPRESSION: No focal infiltrate or effusion. Critical Care Time Critical Care Time Critical Care Time: No Discharge Plan Discharge Clinical Impression: Influenza A Acute bronchitis Qualifiers: Bronchitis organism: unspecified organism Qualified Code(s): J20.9 - Acute bronchitis, unspecified Patient Disposition: Home, Self-Care Condition: Stable Instructions: Influenza (ED), Acute Bronchitis (ED) Additional Instructions: Return to the emergency department for worsening symptoms, or any other concerns Remain well-hydrated, get plenty of rest. Take Tylenol or Motrin [id number] for pain as needed. Flonase for nasal congestion. Zyrtec for runny nose. Lozenges or Chloraseptic spray for sore throat. Albuterol 2 puffs every 4-6 hours as needed for shortness of breath or wheezing. Continue prednisone as prescribed. Take Tamiflu as prescribed Follow up with primary care doctor Patient Language: Luxembourgish Prescriptions: New albuterol sulfate [Ventolin HFA] 90 mcg/actuation HFA aerosol inhaler 2 puff inhalation QID PRN (Reason: shortness of breath or wheezing) Qty: 8.5 0RF prednisone 20 mg tablet 40 mg PO DAILY 4 Days Qty: 8 0RF oseltamivir 75 mg capsule 75 mg PO Q12H 5 Days Qty: 10 0RF No Action prednisone 50 mg tablet 50 mg PO DAILY Qty: 7 0RF albuterol sulfate 90 mcg/actuation HFA aerosol inhaler 4 puff INHALATION QID PRN (Reason: shortness of breath or wheezing) Qty: 8 0RF Follow-up/Referrals: PHYSICIAN,CONTRACT CLERK [employer] [Primary Care Provider] - Stand Alone Forms: Work/School Release IP
[2024-06-03] MEDS: IPRATROPIUM 0.5 MG/ALBUTEROL SULFATE 2.5 MG AMPUL.NEB 3 ML INHALATION (15:49)
[2024-06-03 15:50] VITALS: PULSE 102; RESP 24
[2024-06-03 15:58] VITALS: PULSE 120; RESP 24
[2024-06-03 16:40] LABS: Influenza A QL RT-PCR Positive (Negative); Influenza B QL RT-PCR Negative (Negative); RSV RNA, RT-PCR Negative (Negative); SARS-CoV-2 RNA PCR Negative (Negative)
[2024-06-03 17:31] VITALS: BP 128/89; PULSE 90; RESP 20; TEMP 37.2; O2SAT 97
== END 2024-06-03 17:00 | disposition home or self-care (01) ==
PROVIDERS: Emergency Medicine; Emergency Provider Physician Assistant
DX: J10.1 Influenza due to other identified influenza virus with other respiratory manifestations (principal); J20.9 Acute bronchitis, unspecified; Z20.822 Contact with and (suspected) exposure to COVID-19; F17.200 Nicotine dependence, unspecified, uncomplicated
CPT/HCPCS: 71046; 87637; 94640; 99283; A9270; J7512

== ENCOUNTER 2025-01-16 23:41 | Emergency (ER) | payer OTHER, SELFPAY ==
--- NOTE | ~2025-01-16 | CT_ITS ---
CT HEAD NON-CONTRAST Clinical History: CARMICHAEL, tearful; vision changes Comparison: None Technique: Unenhanced axial images skull base to vertex Coronal, sagittal reformats CT images acquired with automatic exposure control for dose reduction DLP: 605 mGy-cm Findings: Sulci, ventricles: Unremarkable. No intracerebral hemorrhage. No evidence acute territorial infarct. No mass effect, midline shift. Bony calvarium intact. Visualized paranasal sinuses: Clear. Mastoid air cells: Clear. IMPRESSION: 1. No acute intracranial findings. Reviewed, dictated and finalized at location R.
--- NOTE | ~2025-01-16 | XR_ITS ---
Examination: XR chest 2V Clinical History: SOB Comparison: 06/03/2024 Technique: PA and Lateral Findings: Cardiomediastinal silhouette normal size and configuration. Lungs clear. No acute bony abnormality. IMPRESSION: 1. No acute cardiopulmonary findings. Reviewed, dictated and finalized at location R.
[2025-01-16 23:47] VITALS: BP 150/89; PULSE 83; RESP 18; TEMP 36.7; O2SAT 100
[2025-01-17] VITALS (23 sets, daily range): BP systolic 126–152; BP diastolic 63–94; PULSE 52–83; RESP 14–23; O2SAT 96–100
--- NOTE | 2025-01-17 00:35 | PC.NURSE ---
EDP Francoise notified of patient's presentation and symptoms. Per Dr. Owusu, order EKG.
--- NOTE | 2025-01-17 00:48 | ECG_ITS ---
Test Date: 2025-01-17 00:59:57 Measurements Intervals [place] Rate: 75 P: 34 MS: 150 QRS: 6 QRSD: 86 T: 27 QT: 378 QTc: 423 Interpretive Statements SINUS RHYTHM BASELINE ARTIFACT- I, II, AVR NORMAL ECG No previous ECG available for comparison Electronically Signed On 01-17-2025 05:16:16 CDT by Angel Solis D.O.
[2025-01-17 05:14] LABS: Hematocrit 37.7 % (37.0-47.0); Hemoglobin 12.3 g/dL (12.0-15.0); Mean Corpuscular HGB Conc 32.6 g/dl (32-36); Mean Corpuscular Hemoglobin 31.2 pg (26-34); Mean Corpuscular Volume 95.7 fl (80-100); Platelet Count Result 303 k/mm3 (150-375); Red Blood Count 3.94 M/mm3 (4.2-5.4); White Blood Count 9.8 K/mm3 (4.5-10.0)
[2025-01-17 05:27] LABS: Alanine Aminotransferase 15 U/L (6-35); Albumin Level 4.1 g/dL (3.5-5.1); Alkaline Phosphatase 53 U/L (38-126); Anion Gap 6 mmol/L (4-12); Aspartate Amino Transferase 30 U/L (14-36); Bilirubin,Total 0.4 mg/dL (0.2-1.3); Blood Urea Nitrogen 8 mg/dL (7-17); Calcium 9.0 mg/dL (8.4-10.2); Carbon Dioxide 24 mmol/L (22-30); Chloride 105 mmol/L (98-107); Estimated CRCL calculation 109 ml/min; Estimated Glomerular Filt Rate > 60; Glucose 94 mg/dL (65-110); Potassium 4.2 mmol/L (3.4-5.0); Sodium 135 mmol/L (137-145); Total Protein 7.2 g/dL (6.3-8.2)
[2025-01-17 05:49] LABS: Band Neutrophils Percent 1 % (0-6); Eosinophils Absolute Manual 0.39 K/mm3 (0.02-0.50); Eosinophils Percent Manual 4 % (0-4); Lymphocytes Absolute Manual 3.62 K/mm3 (1.1-4.5); Lymphocytes Percent Manual 37 % (18-44); Monocytes Absolute Manual 0.19 K/mm3 (0.1-0.90); Monocytes Percent Manual 2 % (3-9); Neutrophils Absolute Manual 5.58 K/mm3 (1.3-6.7); Neutrophils Percent Manual 56 % (46-73); Total Cells Counted 100
[2025-01-17 05:50] LABS: Schistocytes None Seen
--- NOTE | 2025-01-17 05:58 | ED_ITS ---
HPI - Recheck/Abnormal Lab/Rx General Chief Complaint: Recheck/Abnormal Lab/Rx Stated Complaint: elevated BP Time Seen by Provider: 01/17/25 05:10 Source: patient Mode of arrival: ambulatory Limitations: no limitations History of Present Illness HPI narrative: Patient presents with report of concern for elevated blood pressure occurring intermittently. She reports that she felt loopy, dizzy, seeing stars at work. She states that she had these symptoms when she was preeclamptic before although she denies being currently. She has also had a headache which she states will not johnathan. She has been taking 2 Tylenol and using 200 mg tablets of ibuprofen staggering these throughout. She states she was seen at [facility] a few days ago for similar symptoms and her blood pressure at that time was 185/100. She has not checked her blood pressure since. She feels a pressure around her eyes and ears and her head has been pounding. She has a primary care physician was noted that cannot follow-up with Desiree Dowell until appointment in February. She has Nexplanon in place and has been amenorrheic for the past 3 months. She feels short of breath with exertion. She has started working 3rd shift. She reports feeling that she has edema in her hands and feet and denies any wilfred chest pain although experiences a tightness. She has had a cold lately causing her to have a cough. No history of DVT or PE. Related Data Allergies Allergy/AdvReac Type Severity Reaction Status Date / Time No Known Allergies Allergy Verified 01/17/25 07:18 [facility] Past Medical History Medical History Smoker Surgical History Surgical History (Updated 05/21/21 @ 20:[address] MD) No history of previous surgery Social History Social History Smoking packs per day: 0.5 Smoking cigarettes per day: 10.0 Smoking status: Current every day smoker Living arrangements: with family Occupation/Education: occupation Additional occupation/education comments: employed, 3rd shift Exam 2 Narrative: GENERAL: Well-appearing, well-nourished HEAD: Normocephalic, atraumatic. EYES: Non injected, non icteric. ENT: Nares clear, no rhinorrhea or epistaxis. Gross auditory acuity intact. NECK: Supple. No meningismus. CHEST: Speaking in full sentences. No respiratory distress. HEART: Regular rate and rhythm. . ABDOMEN: Obese Soft, nondistended. EXTREMITIES: Normal range of motion. No appreciable upper or lower extremity edema. SKIN: Warm, dry, no rash. NEURO: No focal deficits. Alert and oriented. Answering questions. Following commands. Normal speech without aphasia or dysarthria. PSYCH: Congruent mood and affect. Becomes Tearful. Course Vital Signs Vital signs: Vital Signs Temperature 98.0 F 01/16/25 23:47 Pulse Rate 83 01/16/25 23:47 Respiratory Rate 18 01/16/25 23:47 Blood Pressure 150/89 H 01/16/25 23:47 Pulse Oximetry 100 01/16/25 23:47 Oxygen Delivery Room Air 01/16/25 23:47 Temperature 98.0 F 01/16/25 23:47 Pulse Rate 83 01/17/25 09:29 Respiratory Rate 16 01/17/25 09:29 Blood Pressure 127/76 01/17/25 09:29 Pulse Oximetry 100 01/17/25 09:29 Oxygen Delivery Room Air 01/16/25 23:47 MDM - Recheck/Abnormal Lab/Rx MDM Narrative Medical decision making narrative: Patient presents with report of a headache that she is not experiencing relief from as well as having elevated blood pressure. She reports feeling loopy and that she was dizzy and seeing stars. Recently started working 3rd shift. She reports that it is not possible that she is , has Nexplanon in place, although the symptoms as well as her subjective edema drained feet are worrisome to her given they felt like the symptoms that she had when she had preeclampsia. Patient reports that she was seen at [facility] for similar a few days ago and that lab work was obtained but no imaging (CT, CXR) or EKG. In the emergency department she is afebrile vital signs notable for hypertension initially, 150/89 however on repeat assessment is normal. Normal renal function. Mild hyponatremia with no prior for comparison. No leukocytosis. No anemia. Urinalysis Abnormal but without signs of infection. D-dimer within normal limits. BNP normal. Viral swab negative. After obtaining the patient's history and performing a physical exam, the headache is most likely due to benign etiology. The neurological examination is non-focal, there are no high-risk features on history, vital signs are stable, and the patient is non-toxic appearing. The Ddx for the patient's headache is tension headache, migraine, or other headache of non-emergent etiology. Possible sinus pressure. Unlikely SAH: headache is non-thunderclap. Unlikely subdural/epidural hematoma: she does not report any trauma; not on anticoagulation Unlikely meningitis: afebrile, no meningismus Unlikely temporal arteritis: pt <60 years old. Unlikely acute angle glaucoma: describes a pressure behind her eyes and ears but without wilfred eye pain Unlikely carbon monoxide poisoning: no other house members reportedly to have similar symptoms CT was obtained given she described intractable nature to the headache and was tearful about the degree of pain. No previous imaging in EMR. The patient's headache was treated symptomatically with acetaminophen followed by (after negative CT): IV fluids, ketorolac, benadryl; compazine; magnesium. Upon reevaluation, She reports the headache is much better. She is given 1 time dose of steroid to reduce the chance of a bounce-back/ recurring headache. She verifies understanding. She will be discharged with strict return precautions and instructions to follow up with their PCP. Differential Diagnosis Differential diagnosis: Likely other (Considered hypertensive emergency/crisis, urgency a, or new diagnosis of hypertension. Considered preeclampsia.) Lab Data Attestation: I reviewed the patient's lab results. 01/17/25 05:09 01/17/25 05:09 Labs: Lab Results 01/17/25 01/17/25 01/17/25 Range/Units 05:09 07:12 07:12 WBC 9.8 (4.5-10.0) K/mm3 RBC 3.94 L (4.2-5.4) M/mm3 Hgb 12.3 (12.0-15.0) g/dL Hct 37.7 (37.0-47.0) % MCV 95.7 (80-100) fl MCH 31.2 (26-34) pg MCHC 32.6 (32-36) g/dl RDW 12.2 (11.5-14.5) % Plt Count 303 (150-375) k/mm3 MPV 10.6 H (7.4-10.4) fl Immature Gran % (Auto) Not Reportable Neut % (Auto) Not Reportable Lymph % (Auto) Not Reportable [place] % (Auto) Not Reportable Eos % (Auto) Not Reportable Baso % (Auto) Not Reportable Lymph # (Auto) Not Reportable [place] # (Auto) Not Reportable Eos # (Auto) Not Reportable Baso # (Auto) Not Reportable Abs Immat Gran (auto) Not Reportable Absolute Neuts (auto) Not Reportable Absolute Nucleated RBC Not Reportable Total Counted 100 Neutrophils % (Manual) 56 (46-73) % Band Neutrophils % 1 (0-6) % Lymphocytes % (Manual) 37 (18-44) % Monocytes % (Manual) 2 L (3-9) % Eosinophils % (Manual) 4 (0-4) % Nucleated RBC % Not Reportable Abs Neuts (Manual) 5.58 (1.3-6.7) K/mm3 Abs Lymphs (Manual) 3.62 (1.1-4.5) K/mm3 Abs Monocytes (Manual) 0.19 (0.1-0.90) K/mm3 Absolute Eos (Manual) 0.39 (0.02-0.50) K/mm3 Atypical Lymphocytes Present Platelet Estimate Adequate (Adequate) Schistocytes None seen D-Dimer < 0.27 (<0.48) ug/mL Sodium 135 L (137-145) mmol/L Potassium 4.2 (3.4-5.0) mmol/L Chloride 105 (98-107) mmol/L Carbon Dioxide 24 (22-30) mmol/L Anion Gap 6 (4-12) mmol/L BUN 8 (7-17) mg/dL Creatinine 0.83 (0.7-1.0) mg/dL Estim Creat Clear Calc 109 ml/min Estimated GFR > 60 (59 - ) Glucose 94 (65-110) mg/dL Calcium 9.0 (8.4-10.2) mg/dL Magnesium 2.0 Cancelled (1.6-2.3) mg/dL Total Bilirubin 0.4 (0.2-1.3) mg/dL AST 30 (14-36) U/L ALT 15 (6-35) U/L Alkaline Phosphatase 53 (38-126) U/L NT-Pro-B Natriuret Pep 44 (19.9-100) pg/mL Total Protein 7.2 (6.3-8.2) g/dL Albumin 4.1 (3.5-5.1) g/dL Urine Color Yellow (Yellow) Urine Appearance Cloudy H (Clear) Urine pH 6.0 (5.0-9.0) Ur Specific [place] 1.021 (1.001-1.035) Urine Protein Negative (Negative) mg/dL Urine Glucose (UA) Negative (Negative) mg/dL Urine Ketones Negative (Negative) mg/dL Ur Blood (Man) Negative (Negative) Urine Nitrate Negative (Negative) Urine Bilirubin Negative (Negative) Urine Urobilinogen 0.2 (<2.0) mg/dL Leukocyte Esterase Rfl Negative (Negative) VIKTOR/UL Urine RBC 3-5 H (0-2) /hpf Urine WBC 0-5 (0-3) /hpf Ur Squamous Epith Cells Moderate (Few) /hpf Urine Bacteria 1+ H /hpf Urine Casts 0-2 POC Urine HCG, Qual (Negative) Influenza A (RT-PCR) Negative (Negative) Influenza B (RT-PCR) Negative (Negative) RSV (RT-PCR) Negative (Negative) SARS-CoV-2 RNA (RT-PCR) Negative (Negative) 01/17/25 Range/Units 07:17 WBC (4.5-10.0) K/mm3 RBC (4.2-5.4) M/mm3 Hgb (12.0-15.0) g/dL Hct (37.0-47.0) % MCV (80-100) fl MCH (26-34) pg MCHC (32-36) g/dl RDW (11.5-14.5) % Plt Count (150-375) k/mm3 MPV (7.4-10.4) fl Immature Gran % (Auto) Neut % (Auto) Lymph % (Auto) [place] % (Auto) Eos % (Auto) Baso % (Auto) Lymph # (Auto) [place] # (Auto) Eos # (Auto) Baso # (Auto) Abs Immat Gran (auto) Absolute Neuts (auto) Absolute Nucleated RBC Total Counted Neutrophils % (Manual) (46-73) % Band Neutrophils % (0-6) % Lymphocytes % (Manual) (18-44) % Monocytes % (Manual) (3-9) % Eosinophils % (Manual) (0-4) % Nucleated RBC % Abs Neuts (Manual) (1.3-6.7) K/mm3 Abs Lymphs (Manual) (1.1-4.5) K/mm3 Abs Monocytes (Manual) (0.1-0.90) K/mm3 Absolute Eos (Manual) (0.02-0.50) K/mm3 Atypical Lymphocytes Platelet Estimate (Adequate) Schistocytes D-Dimer (<0.48) ug/mL Sodium (137-145) mmol/L Potassium (3.4-5.0) mmol/L Chloride (98-107) mmol/L Carbon Dioxide (22-30) mmol/L Anion Gap (4-12) mmol/L BUN (7-17) mg/dL Creatinine (0.7-1.0) mg/dL Estim Creat Clear Calc ml/min Estimated GFR (59 - ) Glucose (65-110) mg/dL Calcium (8.4-10.2) mg/dL Magnesium (1.6-2.3) mg/dL Total Bilirubin (0.2-1.3) mg/dL AST (14-36) U/L ALT (6-35) U/L Alkaline Phosphatase (38-126) U/L NT-Pro-B Natriuret Pep (19.9-100) pg/mL Total Protein (6.3-8.2) g/dL Albumin (3.5-5.1) g/dL Urine Color (Yellow) Urine Appearance (Clear) Urine pH (5.0-9.0) Ur Specific [place] (1.001-1.035) Urine Protein (Negative) mg/dL Urine Glucose (UA) (Negative) mg/dL Urine Ketones (Negative) mg/dL Ur Blood (Man) (Negative) Urine Nitrate (Negative) Urine Bilirubin (Negative) Urine Urobilinogen (<2.0) mg/dL Leukocyte Esterase Rfl (Negative) VIKTOR/UL Urine RBC (0-2) /hpf Urine WBC (0-3) /hpf Ur Squamous Epith Cells (Few) /hpf Urine Bacteria /hpf Urine Casts POC Urine HCG, Qual Negative (Negative) Influenza A (RT-PCR) (Negative) Influenza B (RT-PCR) (Negative) RSV (RT-PCR) (Negative) SARS-CoV-2 RNA (RT-PCR) (Negative) Imaging Data Attestation: I personally reviewed and interpreted this imaging study as follows: My impression: Chest x-ray negative on my independent interpretation Radiologist's impression: IMPRESSION: 1. No acute intracranial findings. ECG Data EKG #1: Attestation: I personally reviewed and interpreted this ECG as follows: ECG completion date: 02/13/25 ECG completion time: 00:59 Interpretation: Normal sinus rhythm at a rate of 75 beats per minute. [place] interval 150. QRS 86. QT/ QTC 378/423. Good R-wave progression across the precordial leads. No T-wave inversion. Discharge Plan Discharge Clinical Impression: Headache Patient Disposition: Home Condition: Stable Instructions: Antibiotic Form, How to Take a Blood Pressure Reading (ED), General Headache (ED) Additional Instructions: Your blood pressure was initially elevated, 150/89 but then normal repeat assessment. Is reasonable to assume that this is due to your pain from your headache rather than diagnosing you with hypertension although I do recommend following up with your PCP about this. You can keep a log checking your blood pressure once a day and taking it to an appointment with them. Acetaminophen/Tylenol (maximum 4000 mg per day) is safe to take with NSAIDs (ibuprofen/Motrin) for pain relief. The rest of your work up was reassuring. Patient Language: Kiswahili Prescriptions: No Action prednisone 50 mg tablet 50 mg PO DAILY Qty: 7 0RF albuterol sulfate 90 mcg/actuation HFA aerosol inhaler 4 puff INHALATION QID PRN (Reason: shortness of breath or wheezing) Qty: 8 0RF albuterol sulfate [Ventolin HFA] 90 mcg/actuation HFA aerosol inhaler 2 puff inhalation QID PRN (Reason: shortness of breath or wheezing) Qty: 8.5 0RF prednisone 20 mg tablet 40 mg PO DAILY 4 Days Qty: 8 0RF oseltamivir 75 mg capsule 75 mg PO Q12H 5 Days Qty: 10 0RF Follow-up/Referrals: Jluis,Desiree Avila MD [Non-Staff, Unknown] PHYSICIAN,BRAND MARKETING MANAGER [Primary Care Provider, Internal Medicine] Stand Alone Forms: Work/School Release IP Time of Disposition: 08:48
[2025-01-17] MEDS: ACETAMINOPHEN 500 MG TABLET 1000 MG PO (06:31)
[2025-01-17 07:19] LABS: BEDSIDEPREGUCG Negative (Negative)
[2025-01-17 07:29] LABS: Add Urine Microscopic? YES; Appearance Urine Cloudy (Clear); Glucose Urine UA Negative (Negative); Leukocyte Esterase Ur Negative LEU/UL (Negative); Nitrate Urine Negative (Negative); Non Pathogenic Casts 0-2; Specific Grav Ur 1.021 (1.001-1.035)
[2025-01-17 07:38] LABS: Magnesium 2.0 mg/dL (1.6-2.3)
[2025-01-17 07:46] LABS: NT Pro B Type Natriuretic Pept 44 pg/mL (19.9-100)
[2025-01-17 08:00] LABS: Influenza A QL RT-PCR Negative (Negative); Influenza B QL RT-PCR Negative (Negative); RSV RNA, RT-PCR Negative (Negative); SARS-CoV-2 RNA PCR Negative (Negative)
[2025-01-17] MEDS: KETOROLAC 30 MG/ML VIAL (*BKC) IV PUSH (08:11)
[2025-01-17] MEDS: PROCHLORPERAZINE EDISYLATE 10 MG/2 ML VIAL 5 MG IV PUSH (08:15)
[2025-01-17] MEDS: SODIUM CHLORIDE 0.9% IV 1,000 ML 999 ML IV CONT (08:15)
[2025-01-17] MEDS: MAGNESIUM SULF 1 GM/D5W 100 ML 1 GM/100 ML BAG IVPB (08:18)
== END 2025-01-17 09:30 | disposition home or self-care (01) ==
PROVIDERS: Emergency Provider Student in an Organized Health Care Education/Training Program
DX: R51.9 Headache, unspecified (principal); Z20.822 Contact with and (suspected) exposure to COVID-19; F17.210 Nicotine dependence, cigarettes, uncomplicated
CPT/HCPCS: 36415; 70450; 71046; 80053; 81001; 81025; 83735; 83880; 85025; 85380; 87637; 93005; 96365; 96375; 99284; A9270; J0780; J1200; J1885; J3475; J7030; J8540